=== PATIENT | female | born 1995 | race American Indian/Alaskan Native ===

== ENCOUNTER 2018-03-23 23:31 | Inpatient (IN) | payer OTHER ==
[2018-03-23] MEDS ORDERED: Sodium Chloride 0.9% 1,000 ML IV STA (23:50)
[2018-03-24 00:14] LABS: BASO # 0.01 K/mm3 (0.0-2.0); BASO % 0.1 % (0.0-3.0); GRAN # 11.35 (1.4-6.5); GRAN % 82.7 % (50.0-68.0); HEMOGLOBIN 14.4 g/dL (12.0-16.0); LYMPH # 1.7 (1.2-3.4); LYMPH % 12.2 % (22.0-35.0); MEAN CELL VOLUME 76.8 fl (80.0-105.0); MEAN CORPUSCULAR HEMOGLOBIN 28.7 pg (25.0-35.0); MEAN CORPUSCULAR HGB CONC 37.4 g/dl (31.0-37.0); MEAN PLATELET VOLUME 9.7 fl (7.0-11.0); MONO # 0.7 (0.1-0.6); RBC 5.01 10^6/uL (3.5-6.1); WHITE BLOOD COUNT 13.7 10^3/ul (4.5-11.0)
[2018-03-24 00:16] LABS: URINE BILIRUBIN SMALL (NEGATIVE); URINE BLOOD NEGATIVE (NEGATIVE); URINE GLUCOSE (UA) NEGATIVE (NEGATIVE); URINE LEUKOCYTE ESTERASE TRACE Leu/uL (NEGATIVE); URINE PROTEIN 100 mg/dL (<30 mg/dL); URINE UROBILINOGEN 0.2 E.U./dL (<1 E.U./dL)
[2018-03-24 00:34] LABS: URINE APPEARANCE CLEAR (CLEAR); URINE COLOR YELLOW (YELLOW)
--- NOTE | 2018-03-24 00:44 | ED PDOC ---
Arrival/HPI <Dawson Smith - Last Filed: 03/24/18 02:51> - General Historian: Patient - History of Present Illness Time/Duration: Other (2 days) <Shantal Bryan - Last Filed: 03/26/18 14:27> - General Chief Complaint: Abdominal Pain Time Seen by Provider: 03/23/18 23:50 - History of Present Illness Narrative History of Present Illness (Text): 03/24/18 00:09 22-year-old female presents today with ruq, rlq, epigastric pain x 2 days. pt states she has been having similar symptoms on and off since September. pt c/o nausea, vomiting with severe pain. pt states she usually gets pepcid without improvement. pt denies CP or SOB. pt states pain is sharp and intermittent. pt denies radiation of pain to the back. pt denies fever/chills. denies sick contacts. no diarrhea. no medications have been taken for pain. pt denies headaches, dizziness or weakness. no other complaints. (Shantal Bryan) Past Medical History - Provider Review Nursing Documentation Reviewed: Yes - Travel History Have you recently traveled outside [place] w/in the past 3 mons?: No - Tetanus Immunization Tetanus Immunization: Unknown - Cardiac Hx Cardiac Disorders: No - Pulmonary Hx Respiratory Disorders: No - Neurological Hx Neurological Disorder: No - HEENT Hx HEENT Disorder: No - Renal Hx Renal Disorder: No - Endocrine/Metabolic Hx Endocrine Disorders: No - Hematological/Oncological Hx Blood Disorders: No - Integumentary Hx Dermatological Disorder: No - Musculoskeletal/Rheumatological Hx Musculoskeletal Disorders: No - Gastrointestinal Hx Gastrointestinal Disorders: Yes Hx Gastritis: Yes - Genitourinary/Gynecological Hx Genitourinary Disorders: No - Psychiatric Hx Psychophysiologic Disorder: No Hx Substance Use: Yes - Anesthesia Hx Anesthesia: No <Shantal Bryan - Last Filed: 03/26/18 14:27> Family/Social History - Physician Review Nursing Documentation Reviewed: Yes Family/Social History: Unknown Family HX Smoking Status: Never Smoked Hx Alcohol Use: Yes Frequency of alcohol use: Socially Hx Substance Use: Yes Substance used: Marijuana <Shantal Bryan - Last Filed: 03/26/18 14:27> Allergies/Home Meds <Dawson Smith - Last Filed: 03/24/18 02:51> <Shantal Bryan - Last Filed: 03/26/18 14:27> Allergies/Adverse Reactions: Allergies No Known Allergies Allergy (Verified 03/23/18 23:40) Home Medications: Home Meds Medication Instructions Recorded Confirmed No Known Home Med 03/23/18 03/23/18 Review of Systems - Review of Systems Constitutional: absent: Fatigue, Fevers ENT: absent: Sinus Congestion Respiratory: absent: SOB, Cough Cardiovascular: absent: Chest Pain, Palpitations Gastrointestinal: Abdominal Pain. absent: Constipation, Diarrhea, Nausea, Vomiting Genitourinary Female: absent: Dysuria, Frequency, Hematuria Musculoskeletal: absent: Arthralgias, Back Pain, Neck Pain Skin: absent: Rash, Pruritis Neurological: absent: Headache, Dizziness Psychiatric: absent: Anxiety, Depression <Shantal Bryan - Last Filed: 03/26/18 14:27> Physical Exam Vital Signs Reviewed: Yes Temperature: Afebrile Blood Pressure: Normal Pulse: Regular Respiratory Rate: Normal Appearance: Positive for: Well-Appearing, Non-Toxic, Comfortable Pain Distress: None Mental Status: Positive for: Alert and Oriented X 3 - Systems Exam Head: Present: Atraumatic Mouth: Present: Moist Mucous Membranes Neck: Present: Normal Range of Motion Respiratory/Chest: Present: Clear to Auscultation, Good Air Exchange. No: Respiratory Distress, Accessory Muscle Use Cardiovascular: Present: Regular Rate and Rhythm, Normal S1, S2. No: Murmurs Abdomen: Present: Tenderness (ruq, epigastric, rlq tenderness), Guarding. No: Distention, Peritoneal Signs, Rebound Back: Present: Normal Inspection. No: CVA Tenderness, Midline Tenderness, Paraspinal Tenderness Upper Extremity: Present: Normal ROM Lower Extremity: Present: Normal ROM Neurological: Present: GCS=15, Speech Normal Skin: Present: Warm, Dry, Normal Color. No: Rashes Psychiatric: Present: Alert, Oriented x 3 <Shantal Bryan - Last Filed: 03/26/18 14:27> Vital Signs Temp Pulse Resp BP Pulse Ox 03/24/18 02:17 98.8 F 62 18 134/85 100 03/24/18 00:33 98.7 F 60 16 112/65 100 03/23/18 23:41 98.2 F 64 19 129/92 H 99 Medical Decision Making <Dawson Smith - Last Filed: 03/24/18 02:51> <Shantal Bryan - Last Filed: 03/26/18 14:27> ED Course and Treatment: EXAM: CT Abdomen and Pelvis With Intravenous Contrast Dictated and Authenticated by: Rajeev Mckenna MD 03/24/2018 2:37 AM IMPRESSION: 1. Moderate free pelvic fluid. 2. Bilateral ovarian follicles as described.If clinically warranted, a pelvic ultrasound may be helpful for further assessment. 3. Gastric distention likely due to recent ingestion versus delayed emptying. There is thickening of the distal stomach and duodenum which could be due to peristalsis versus underdistention. Correlation with clinical data is recommended if gastritis/duodenitis is clinically suspected. Correlation with internal medicine evaluation and further workup or followup as recommended by patient's clinical data. 03/24/18 02:[address] Woody who is aware and agrees with the plan. Accepts patient into her service to Med-Surg. (Dawson Smith) 03/24/18 01:02 Patient is nontoxic well appearing with stable vital signs presenting with severe abdominal pain ekg; normal sinus rhythm with sinus arrhythmia at 61 bpm normal axis no ST elevations QTC 434 CBC wbc; 13.7 CMP k: 3.5 Lipase wnl Urinalysis + ketones Bedside right upper quadrant ultrasound performed by Dr. Smith: No CAT scan: Patient reassessment: After protonic some Zofran patient is feeling better. Patient sleeping comfortably in emergency room. Discussed all results with patient in depth Impression: Abdominal pain Tylenol every 4 hours as needed for pain Protonix; one tablet daily Increase fluids Follow up with primary care physician within the next 2 days Follow up with the GI specialist within the next 2 days. Return immediately if symptoms worsen persist or if new symptoms develop: High fevers, increasing pain, vomiting, diarrhea or any other concerning symptoms develop 03/24/18 01:39 case signed out to dr. smith pending CT results, re-evaluation and disposition. (Shanatl Bryan) - Lab Interpretations Microbiology Results: Microbiology Results 03/24/18 00:02 Urine Urine Culture - Final 50-100,000 CFU/ML. MULTIPLE SPECIES. SUGGEST REPEAT SPECIMEN. Lab Results: 03/25/18 07:00 03/26/18 06:20 Lab Results 03/26/18 06:20: Potassium 3.5 L 03/25/18 07:00: Urine HCG, Qual Negative 03/25/18 07:00: Sodium 138, Potassium 3.5 L, Chloride 103, Carbon Dioxide 21, Anion Gap 17, BUN 12, Creatinine 0.8, Est GFR ( Amer) > 60, Est GFR (Non- Af Amer) > 60, Random Glucose 85, Calcium 9.4 03/25/18 07:00: WBC 11.1 H, RBC 4.37, Hgb 12.3 D, Hct 33.8 L, MCV 77.3 L, MCH 28.1, MCHC 36.4, RDW 13.9, Plt Count 232, MPV 9.9 03/24/18 00:02: WBC 13.7 H, RBC 5.01, Hgb 14.4, Hct 38.5, MCV 76.8 L, MCH 28.7, MCHC 37.4 H, RDW 14.0, Plt Count 275, MPV 9.7, Gran % 82.7 H, Lymph % (Auto) 12.2 L, [place] % (Auto) 5.0, Eos % (Auto) 0.0 L, Baso % (Auto) 0.1, Gran # 11.35 H , Lymph # (Auto) 1.7, [place] # (Auto) 0.7 H, Eos # (Auto) 0.0, Baso # (Auto) 0.01 03/24/18 00:02: Sodium 142, Potassium 3.5 L, Chloride 101, Carbon Dioxide 22, Anion Gap 23 H, BUN 13, Creatinine 0.9, Est GFR ( Amer) > 60, Est GFR ( Non-Af Amer) > 60, Random Glucose 136 H, Calcium 10.3, Total Bilirubin 1.5 H, AST 26, ALT 22, Alkaline Phosphatase 93, Total Protein 9.4 H, Albumin 5.0 H, Globulin 4.4, Albumin/Globulin Ratio 1.1, Lipase 30 03/24/18 00:02: Urine Color Yellow, Urine Appearance Clear, Urine pH 6.0, Ur Specific [place] >= 1.030, Urine Protein 100 H, Urine Glucose (UA) Negative, Urine Ketones 40 H, Urine Blood Negative, Urine Nitrate Negative, Urine Bilirubin Small H, Urine Urobilinogen 0.2, Ur Leukocyte Esterase Trace H, Urine RBC 1 - 3, Urine WBC 5 - 10, Ur Epithelial Cells 1 - 3, Urine Bacteria Mod, Urine Other Fiber - RAD Interpretation Radiology Orders: 03/24/18 00:07 ABD & PELVIS IV CONTRAST ONLY [CT] Stat CHEST PORTABLE [RAD] Stat 03/24/18 12:14 ABDOMEN COMPLETE [US] Urgent PELVIS ULTRASOUND [US] Routine - Medication Orders Current Medication Orders: Acetaminophen (Tylenol 325mg Tab) 650 mg PO Q6H PRN PRN Reason: Fever >100.4 F Metronidazole (Flagyl) 500 mg in 100 mls @ 100 mls/hr IVPB Q8 JOSE A PRN Reason: Protocol Last Admin: 03/26/18 13:19 Dose: 100 mls/hr eMAR Start Stop Document 03/26/18 13:19 TAV (Rec: 03/26/18 13:19 TAV [id number]) Intravenous Solution Start Date 03/26/18 Start Time 13:19 End Date 03/26/18 End time 14:19 Total Infusion Time 60 Ceftriaxone Sodium (Rocephin 1 Gram Ivpb) 1 gm in 100 mls @ 100 mls/hr IVPB DAILY JOSE A PRN Reason: Protocol Last Admin: 03/26/18 09:46 Dose: 100 mls/hr eMAR Start Stop Document 03/26/18 09:46 TAV (Rec: 03/26/18 09:47 TAV [id number]) Intravenous Solution Start Date 03/26/18 Start Time 09:47 End Date 03/26/18 End time 10:47 Total Infusion Time 60 Ketorolac Tromethamine (Toradol) 30 mg IVP Q6H PRN PRN Reason: Pain, moderate (4-7) Last Admin: 03/26/18 05:00 Dose: 30 mg [facility] Pain Assessment Document 03/26/18 05:00 KP (Rec: 03/26/18 05:30 KP [id number]) Pain Reassessment Is this a pain reassessment? No Sleep Is patient sleeping during reassessment? No Presence of Pain Presence of Pain Yes IVP Administration Document 03/26/18 05:00 KP (Rec: 03/26/18 05:30 KP [id number]) Charges for Administration # of IVP Administrations 1 Re-Assess: MAR Pain Assessment Document 03/26/18 06:00 (Rec: 03/26/18 06:58 [id number] Pain Reassessment Is this a pain reassessment? Yes Sleep Is patient sleeping during reassessment? No Presence of Pain Presence of Pain No Morphine Sulfate (Morphine) 1 mg IVP Q6H PRN PRN Reason: Pain, severe (8-10) Ondansetron HCl (Zofran Inj) 4 mg IVP Q4H PRN PRN Reason: Nausea/Vomiting Last Admin: 03/26/18 05:46 Dose: 4 mg IVP Administration Document 03/26/18 05:46 (Rec: 03/26/18 05:46 [id number] Charges for Administration # of IVP Administrations 1 Pantoprazole Sodium (Protonix Ec Tab) 40 mg PO Q12H [facility] Last Admin: 03/26/18 09:46 Dose: Potassium Chloride (K-Dur 20 Meq Er Tab) 40 meq PO BRK [facility] Last Admin: 03/26/18 11:58 Dose: 40 meq Discontinued Medications Famotidine (Pepcid) 20 mg IVP DAILY [facility] Last Admin: 03/24/18 09:29 Dose: 20 mg IVP Administration Document 03/24/18 09:29 [facility] (Rec: 03/24/18 09:29 [id number]) Charges for Administration # of IVP Administrations 1 Sodium Chloride (Sodium Chloride 0.9%) 1,000 mls @ 999 mls/hr IV .Q1H1M STA Stop: 03/24/18 00:50 Last Admin: 03/24/18 00:12 Dose: 999 mls/hr eMAR Start Stop Document 03/24/18 00:12 (Rec: 03/24/18 00:12 [id number]) Intravenous Solution Start Date 03/24/18 Start Time 00:12 Ceftriaxone Sodium (Rocephin 1 Gram Ivpb) 1 gm in 100 mls @ 100 mls/hr IVPB STAT STA PRN Reason: Protocol Stop: 03/24/18 03:43 Last Admin: 03/24/18 03:00 Dose: 100 mls/hr eMAR Start Stop Document 03/24/18 03:00 (Rec: 03/24/18 03:00 [id number]) Intravenous Solution Start Date 03/24/18 Start Time 03:00 Sodium Chloride (Sodium Chloride 0.9%) 1,000 mls @ 100 mls/hr IV .Q10H JOSE A Stop: 03/26/18 10:00 Last Admin: 03/26/18 12:00 Dose: 100 mls/hr eMAR Start Stop Document 03/26/18 12:00 TAV (Rec: 03/26/18 12:00 TAV [id number]) Intravenous Solution Start Date 03/26/18 Start Time 12:00 Potassium Chloride (Potassium Chloride 10 Meq/100 Ml) 10 meq in 100 mls @ 50 mls/hr IVPB Q2H JOSE A Stop: 03/25/18 05:29 Last Admin: 03/25/18 04:11 Dose: 50 mls/hr eMAR Start Stop Document 03/25/18 04:11 MP (Rec: 03/25/18 04:11 MP [id number]) Intravenous Solution Start Date 03/25/18 Start Time 04:11 Ketorolac Tromethamine (Toradol) 30 mg IVP STAT STA Stop: 03/24/18 02:40 Last Admin: 03/24/18 02:52 Dose: 30 mg MAR Pain Assessment Document 03/24/18 02:52 (Rec: 03/24/18 02:52 [id number]) Pain Reassessment Is this a pain reassessment? No Sleep Is patient sleeping during reassessment? No Presence of Pain Presence of Pain Yes Pain Scale Used Pain Scale Used Numeric Location Pain Location Body Site Abdomen IVP Administration Document 03/24/18 02:52 (Rec: 03/24/18 02:52 [id number]) Charges for Administration # of IVP Administrations 1 Re-Assess: MAR Pain Assessment Document 03/24/18 04:20 KP (Rec: 03/24/18 05:09 KP [id number]) Pain Reassessment Is this a pain reassessment? Yes Sleep Is patient sleeping during reassessment? No Presence of Pain Presence of Pain No Ketorolac Tromethamine (Toradol) 30 mg IVP STAT STA Stop: 03/24/18 04:50 Last Admin: 03/24/18 05:06 Dose: 30 mg MAR Pain Assessment Document 03/24/18 05:06 KP (Rec: 03/24/18 05:06 KP [id number]) Pain Reassessment Is this a pain reassessment? No Sleep Is patient sleeping during reassessment? No Presence of Pain Presence of Pain Yes Pain Scale Used Pain Scale Used Numeric Location Pain Location Body Site Abdomen Back Description Description Intermittent Intensity of Pain at present 6 Pain Behavior Moaning IVP Administration Document 03/24/18 05:06 (Rec: 03/24/18 05:06 [id number]) Charges for Administration # of IVP Administrations 1 Re-Assess: [facility] Pain Assessment Document 03/24/18 06:06 (Rec: 03/24/18 06:06 [id number]) Pain Reassessment Is this a pain reassessment? Yes Sleep Is patient sleeping during reassessment? No Presence of Pain Presence of Pain No Ketorolac Tromethamine (Toradol) 30 mg IVP STAT STA Stop: 03/24/18 23:14 Last Admin: 03/24/18 23:27 Dose: 30 mg [facility] Pain Assessment Document 03/24/18 23:27 MP (Rec: 03/24/18 23:27 [id number]) Pain Reassessment Is this a pain reassessment? No IVP Administration Document 03/24/18 23:27 MP (Rec: 03/24/18 23:27 [id number]) Charges for Administration # of IVP Administrations 1 Re-Assess: [facility] Pain Assessment Document 03/25/18 00:27 MP (Rec: 03/25/18 01:01 [id number] Pain Reassessment Is this a pain reassessment? Yes Sleep Is patient sleeping during reassessment? Yes Morphine Sulfate (Morphine) 2 mg IVP Q6H PRN PRN Reason: Pain, severe (8-10) Last Admin: 03/24/18 20:20 Dose: 2 mg [facility] Pain Assessment Document 03/24/18 20:20 MP (Rec: 03/24/18 20:20 [id number]) Pain Reassessment Is this a pain reassessment? No Presence of Pain Presence of Pain Yes Pain Scale Used Pain Scale Used Numeric Location Pain Location Body Site Abdomen Description Description Intermittent Intensity of Pain at present 8 Acceptable Level of Pain 0 Pain Behavior Crying IVP Administration Document 03/24/18 20:20 MP (Rec: 03/24/18 20:20 MP [facility] [id number]) Charges for Administration # of IVP Administrations 1 Re-Assess: [facility] Pain Assessment Document 03/24/18 21:15 MP (Rec: 03/24/18 21:16 MP [id number]) Pain Reassessment Is this a pain reassessment? Yes Sleep Is patient sleeping during reassessment? No Pain Scale Used Pain Scale Used Numeric Location Left, Right or Bilateral Right Pain Location Body Site Abdomen Description Description Intermittent Intensity of Pain at present 2 Ondansetron HCl (Zofran Inj) 4 mg IVP STAT STA Stop: 03/23/18 23:56 Last Admin: 03/24/18 00:11 Dose: 4 mg IVP Administration Document 03/24/18 00:11 (Rec: 03/24/18 00:11 [id number]) Charges for Administration # of IVP Administrations 1 Ondansetron HCl (Zofran Inj) 4 mg IVP STAT STA Stop: 03/24/18 02:01 Last Admin: 03/24/18 02:11 Dose: 4 mg IVP Administration Document 03/24/18 02:11 SH (Rec: 03/24/18 02:11 [id number]) Charges for Administration # of IVP Administrations 2 Pantoprazole Sodium (Protonix Inj) 40 mg IVP STAT STA Stop: 03/23/18 23:56 Last Admin: 03/24/18 00:11 Dose: 40 mg IVP Administration Document 03/24/18 00:11 SH (Rec: 03/24/18 00:11 [id number]) Charges for Administration # of IVP Administrations 1 Potassium Chloride (K-Dur 20 Meq Er Tab) 20 meq PO ONCE ONE Stop: 03/25/18 20:34 Last Admin: 03/26/18 00:16 Dose: Not Given Non-Admin Reason: Nausea - Scribe Statement The provider has reviewed the documentation as recorded by the Scribe <Dawson Smith - Last Filed: 03/24/18 02:51> <Shantal Bryan - Last Filed: 03/26/18 14:27> - Scribe Statement Inga Poole Provider Scribe Attestation: All medical record entries made by the Scribe were at my direction and personally dictated by me. I have reviewed the chart and agree that the record accurately reflects my personal performance of the history, physical exam, medical decision making, and the department course for this patient. I have also personally directed, reviewed, and agree with the discharge instructions and disposition. (Dawson Smith) Disposition/Present on Arrival <Dawson Smith - Last Filed: 03/24/18 02:51> - Present on Arrival Any Indicators Present on Arrival: No History of DVT/PE: No History of Uncontrolled Diabetes: No Urinary Catheter: No History of Decub. Ulcer: No History Surgical Site Infection Following: None - Disposition Have Diagnosis and Disposition been Completed?: Yes Disposition Time: 02:00 <Shantal Bryan - Last Filed: 03/26/18 14:27> - Disposition Diagnosis: Abdominal pain Disposition: HOSPITALIZED Patient Problems: Current Active Problems Problem Status Onset Abdominal pain Acute Condition: FAIR
[2018-03-24 00:45] LABS: ALB/GLOB RATIO 1.1 (1.1-1.8); ALT/SGPT 22 U/L (7-56); AST/SGOT 26 U/L (14-36); BLOOD UREA NITROGEN 13 mg/dL (7-21); CALCIUM 10.3 mg/dL (8.4-10.5); GFR AFRICAN-AMERICAN > 60; GFR NON-AFRICAN AMERICAN > 60; LIPASE 30 U/L (23-300)
[2018-03-24] MEDS ORDERED: Iohexol 300 100 ML IJ ONE (01:13)
[2018-03-24] MEDS ORDERED: Iohexol 350 MG/100 ML VIAL ONE (01:13)
[2018-03-24 01:23] LABS: URINE BACTERIA MOD (NEG)
--- NOTE | 2018-03-24 02:38 | CT ---
EXAM: CT Abdomen and Pelvis With Intravenous Contrast CLINICAL HISTORY: 22 years old, female; Pain; Abdominal pain; Additional info: Diffuse abdominal pain TECHNIQUE: Axial computed tomography images of the abdomen and pelvis with intravenous contrast. All CT scans at this facility use one or more dose reduction techniques, viz.: automated exposure control; ma/kV adjustment per patient size (including targeted exams where dose is matched to indication; i.e. head); or iterative reconstruction technique. 556 images are submitted. Axial images are submitted in lung and soft tissue windows. Coronal and sagittal reformatted images were created and reviewed. Axial reformatted images were created and reviewed. CONTRAST: 100 mL of [id number] administered intravenously. COMPARISON: No relevant prior studies available. FINDINGS: Lung bases: Unremarkable. No mass. No consolidation. ABDOMEN: Liver: Fatty liver. Gallbladder and bile ducts: Partially distended gallbladder which is folded on itself. Pancreas: Unremarkable. No mass. No ductal dilation. Spleen: Left upper quadrant splenule. Adrenals: Unremarkable. No mass. Kidneys and ureters: Unremarkable. No solid mass. No hydronephrosis. Stomach and bowel: Gastric distention likely due to recent ingestion versus delayed emptying. There is thickening of the distal stomach and duodenum which could be due to peristalsis versus underdistention. Correlation with clinical data is recommended if gastritis/duodenitis is clinically suspected. PELVIS: Appendix: Normal appendix. Bladder: Partially decompressed bladder with bladder wall thickening. Correlation with urinalysis is recommended only if clinical cystitis is suspected. Reproductive: Retroflexed uterus. Prominent pelvic vessels. Correlation with clinical data is recommended pelvic congestion syndrome is clinically suspected. Right ovarian dominant follicle measures 2.4 cm and the left ovarian dominant follicle measures 1.7 cm. ABDOMEN and PELVIS: Intraperitoneal space: Moderate free pelvic fluid. No free air. Bones/joints: No acute fracture. No dislocation. Soft tissues: Unremarkable. Vasculature: The aorta is normal in caliber and there are no danielle-aortic collections. Retroaortic left renal vein. Lymph nodes: Unremarkable. No enlarged lymph nodes. IMPRESSION: 1. Moderate free pelvic fluid. 2. Bilateral ovarian follicles as described.If clinically warranted, a pelvic ultrasound may be helpful for further assessment. 3. Gastric distention likely due to recent ingestion versus delayed emptying. There is thickening of the distal stomach and duodenum which could be due to peristalsis versus underdistention. Correlation with clinical data is recommended if gastritis/duodenitis is clinically suspected. Correlation with internal medicine evaluation and further workup or followup as recommended by patient's clinical data.
[2018-03-24] MEDS ORDERED: cefTRIAXone 1 gm 1 GM/100 ML BAG IVPB STA (02:44)
[2018-03-24] MEDS: Sodium Chloride 0.9% 1,000 ML IV SCH (03:00)
--- NOTE | 2018-03-24 08:47 | RAD ---
HISTORY: abd pain COMPARISON: No prior. FINDINGS: LUNGS: No active pulmonary disease. PLEURA: No significant pleural effusion identified, no pneumothorax apparent. CARDIOVASCULAR: Normal. OSSEOUS STRUCTURES: No significant abnormalities. VISUALIZED UPPER ABDOMEN: Normal. OTHER FINDINGS: None. IMPRESSION: No active disease.
[2018-03-24] MEDS: cefTRIAXone 1 gm 1 GM/100 ML BAG IVPB SCH (09:29)
[2018-03-24] MEDS: metroNIDAZOLE IV 500 mg/100 ml 500 MG/100 ML BAG IVPB SCH ×2 (13:18→21:40)
[2018-03-24] MEDS: Morphine 4 mg/ml ISec IVP PRN ×2 (13:33→20:20)
--- NOTE | 2018-03-24 16:56 | US ---
HISTORY: Abdominal pain COMPARISON: Comparison made with CT scan abdomen pelvis dated 03/24/2018 TECHNIQUE: Sonographic evaluation of the abdomen. FINDINGS: LIVER: Liver measures approximately 13 cm in CC dimension. No obvious hepatic mass collection or calcification. Liver demonstrates smooth contour and slight increased echotexture suggesting fatty infiltration. Other infiltrative hepatic cellular disease process not excluded. Clinical correlation recommended. No evidence of significant intrahepatic biliary ductal dilatation. GALLBLADDER: Unremarkable. No gallstones. COMMON BILE DUCT: Measures 2.4 mm. No stones. No dilatation. PANCREAS: Unremarkable as visualized. No mass. No ductal dilatation. RIGHT KIDNEY: Measures 9.5 x 4.0 x 5.1cm. Normal echogenicity. No calculus, mass, or hydronephrosis. LEFT KIDNEY: Measures 9.5 x 4.3 x 5.2cm. Normal echogenicity. No calculus, mass, or hydronephrosis. SPLEEN: Normal in size and contour. No mass. AORTA: No aneurysmal dilatation. IVC: Unremarkable. OTHER FINDINGS: None. IMPRESSION: Findings suggest mild fatty infiltration. Other infiltrative opacity disease process not excluded. .
--- NOTE | 2018-03-24 16:58 | US ---
HISTORY: Fibroids COMPARISON: None available. TECHNIQUE: FINDINGS: UTERUS: Measures 7.1 x 2.9 x 4.6 cm. Normal in size and appearance. No fibroid or other mass lesion seen. ENDOMETRIUM: Measures 5.0 mm in diameter. Unremarkable. Cervix measures approximately 3.5 cm CERVIX: No cervical abnormality identified. RIGHT OVARY: Measures 3.6 x 1.4 x 3.4 cm. No solid mass. Normal flow. LEFT OVARY: Measures 2.7 x 1.8 x 2.3 cm. No solid mass. Normal flow. FREE FLUID: Small amount of free fluid present within the cul de sac. OTHER FINDINGS: None. IMPRESSION: Small amount of free fluid present within the cul de sac.
--- NOTE | 2018-03-24 17:02 | CARD ---
APPROVED REPORT EKG Measurement Heart [id number] <Conclusion> Normal sinus rhythm with sinus arrhythmia Normal ECG
--- NOTE | 2018-03-25 01:36 | CP.PCM.PN ---
Subjective - Date & Time of Evaluation Date of Evaluation: 03/25/18 Time of Evaluation: 01:36 - Subjective Subjective: Patient was seen at bedside. She had received morphine for pain, still has pain. As per mother and patient , morphine is too strong for her, can not tolerate. Pain is in epigastric and RUQ area, mild pain with no radiation. No chest pain, sob. Medical record was reviewed. 22 year old woman was admitted with intractable abdominal pain, nausea and vomiting, gastroenteritis. Has no significant medical history. Objective - Vital Signs/Intake and Output Vital Signs (last 24 hours): Temp Pulse Resp BP Pulse Ox 98.5 F 56 L 18 130/95 H 100 03/24/18 23:06 03/24/18 23:06 03/24/18 23:06 03/24/18 23:06 03/24/18 23:06 Intake and Output: 03/24/18 03/25/18 18:59 06:59 Intake Total 0 Balance 0 - Medications Medications: Current Medications Acetaminophen (Tylenol 325mg Tab) 650 mg PO Q6H PRN PRN Reason: Fever >100.4 F Famotidine (Pepcid) 20 mg IVP DAILY [facility] Last Admin: 03/24/18 09:29 Dose: 20 mg Sodium Chloride (Sodium Chloride 0.9%) 1,000 mls @ 100 mls/hr IV .Q10H [facility] Stop: 03/26/18 10:00 Last Admin: 03/24/18 03:00 Dose: 100 mls/hr Metronidazole (Flagyl) 500 mg in 100 mls @ 100 mls/hr IVPB Q8 JOSE A PRN Reason: Protocol Last Admin: 03/24/18 21:40 Dose: 100 mls/hr Ceftriaxone Sodium (Rocephin 1 Gram Ivpb) 1 gm in 100 mls @ 100 mls/hr IVPB DAILY [facility] PRN Reason: Protocol Last Admin: 03/24/18 09:29 Dose: 100 mls/hr Potassium Chloride (Potassium Chloride 10 Meq/100 Ml) 10 meq in 100 mls @ 50 mls/hr IVPB Q2H [facility] Stop: 03/25/18 05:29 Morphine Sulfate (Morphine) 2 mg IVP Q6H PRN PRN Reason: Pain, severe (8-10) Last Admin: 03/24/18 20:20 Dose: 2 mg Ondansetron HCl (Zofran Inj) 4 mg IVP Q4H PRN PRN Reason: Nausea/Vomiting Last Admin: 03/24/18 20:19 Dose: 4 mg - Labs Labs: Laboratory Last Values WBC 13.7 10^3/ul (4.5-11.0) H 03/24/18 00:02 RBC 5.01 10^6/uL (3.5-6.1) 03/24/18 00:02 Hgb 14.4 g/dL (12.0-16.0) 03/24/18 00:02 Hct 38.5 % (36.0-48.0) 03/24/18 00:02 MCV 76.8 fl (80.0-105.0) L 03/24/18 00:02 MCH 28.7 pg (25.0-35.0) 03/24/18 00:02 MCHC 37.4 g/dl (31.0-37.0) H 03/24/18 00:02 RDW 14.0 % (11.5-14.5) 03/24/18 00:02 Plt Count 275 10^3/uL (120.0-450.0) 03/24/18 00:02 MPV 9.7 fl (7.0-11.0) 03/24/18 00:02 Gran % 82.7 % (50.0-68.0) H 03/24/18 00:02 Lymph % (Auto) 12.2 % (22.0-35.0) L 03/24/18 00:02 [place] % (Auto) 5.0 % (1.0-6.0) 03/24/18 00:02 Eos % (Auto) 0.0 % (1.5-5.0) L 03/24/18 00:02 Baso % (Auto) 0.1 % (0.0-3.0) 03/24/18 00:02 Gran # 11.35 (1.4-6.5) H 03/24/18 00:02 Lymph # (Auto) 1.7 (1.2-3.4) 03/24/18 00:02 [place] # (Auto) 0.7 (0.1-0.6) H 03/24/18 00:02 Eos # (Auto) 0.0 (0.0-0.7) 03/24/18 00:02 Baso # (Auto) 0.01 K/mm3 (0.0-2.0) 03/24/18 00:02 Sodium 142 mmol/L (132-148) 03/24/18 00:02 Potassium 3.5 mmol/L (3.6-5.0) L 03/24/18 00:02 Chloride 101 mmol/L (98-107) 03/24/18 00:02 Carbon Dioxide 22 mmol/L (21-33) 03/24/18 00:02 Anion Gap 23 (10-20) H 03/24/18 00:02 BUN 13 mg/dL (7-21) 03/24/18 00:02 Creatinine 0.9 mg/dl (0.7-1.2) 03/24/18 00:02 Est GFR ( Amer) > 60 03/24/18 00:02 Est GFR (Non-Af Amer) > 60 03/24/18 00:02 Random Glucose 136 mg/dL (70-110) H 03/24/18 00:02 Calcium 10.3 mg/dL (8.4-10.5) 03/24/18 00:02 Total Bilirubin 1.5 mg/dL (0.2-1.3) H 03/24/18 00:02 AST 26 U/L (14-36) 03/24/18 00:02 ALT 22 U/L (7-56) 03/24/18 00:02 Alkaline Phosphatase 93 U/L (38-126) 03/24/18 00:02 Total Protein 9.4 g/dL (5.8-8.3) H 03/24/18 00:02 Albumin 5.0 g/dL (3.0-4.8) H 03/24/18 00:02 Globulin 4.4 gm/dL 03/24/18 00:02 Albumin/Globulin Ratio 1.1 (1.1-1.8) 03/24/18 00:02 Lipase 30 U/L (23-300) 03/24/18 00:02 Urine Color Yellow (YELLOW) 03/24/18 00:02 Urine Appearance Clear (CLEAR) 03/24/18 00:02 Urine pH 6.0 (4.7-8.0) 03/24/18 00:02 Ur Specific [place] >= 1.030 (1.005-1.035) 03/24/18 00:02 Urine Protein 100 mg/dL (<30 mg/dL) H 03/24/18 00:02 Urine Glucose (UA) Negative mg/dL (NEGATIVE) 03/24/18 00:02 Urine Ketones 40 mg/dL (NEGATIVE) H 03/24/18 00:02 Urine Blood Negative (NEGATIVE) 03/24/18 00:02 Urine Nitrate Negative (NEGATIVE) 03/24/18 00:02 Urine Bilirubin Small (NEGATIVE) H 03/24/18 00:02 Urine Urobilinogen 0.2 E.U./dL (<1 E.U./dL) 03/24/18 00:02 Ur Leukocyte Esterase Trace Roberta/uL (NEGATIVE) H 03/24/18 00:02 Urine RBC 1 - 3 /hpf (0-2) 03/24/18 00:02 Urine WBC 5 - 10 /hpf (0-6) 03/24/18 00:02 Ur Epithelial Cells 1 - 3 /hpf (0-5) 03/24/18 00:02 Urine Bacteria Mod (NEG) 03/24/18 00:02 Urine Other Fiber 03/24/18 00:02 - Constitutional Appears: Well, No Acute Distress - Head Exam Head Exam: ATRAUMATIC, NORMAL INSPECTION, NORMOCEPHALIC - Eye Exam Eye Exam: Normal appearance - ENT Exam ENT Exam: Normal External Ear Exam - Neck Exam Neck Exam: Normal Inspection - Respiratory Exam Respiratory Exam: NORMAL BREATHING PATTERN - Cardiovascular Exam Cardiovascular Exam: absent: JVD - GI/Abdominal Exam GI & Abdominal Exam: absent: Distended - Rectal Exam Rectal Exam: Deferred - Exam Additional comments: Deferred. - Extremities Exam Extremities Exam: Normal Inspection - Back Exam Back Exam: NORMAL INSPECTION - Neurological Exam Neurological Exam: Alert, Awake, Oriented x3 - Psychiatric Exam Psychiatric exam: Normal Affect, Normal Mood - Skin Skin Exam: Normal Color Assessment and Plan - Assessment and Plan (Free Text) Assessment: Abdominal-RUQ+Epigastric pain. Gastritis?GERD. R/O gastroenteritis. Dehydration. Hypokalemia. Plan: Conitnue present management . Replace K. Toradol 30 mg IV X 1. May consider avoiding morphine as analgesic.
--- NOTE | 2018-03-25 02:03 | HP ---
DATE OF EXAM: 03/24/2018 HISTORY OF PRESENT ILLNESS: This 22-year-old female was examined at her bedside and this case was reviewed in detail with nurse, Claribel Bateman, registered nurse, and Dr. Bandar Dillard from GI. The patient presented to [facility] Emergency Room earlier this morning complaining of intractable abdominal pain, nausea, and vomiting. She received multiple doses of IV Pepcid and IV Zofran, and was admitted for further evaluation of the above. On further discussion with this patient, she states that this has been an ongoing problem since 09/2017. To date, she has not had time to make an appointment with a stained glass joiner for further evaluation and is admitted for treatment and evaluation of the above. REVIEW OF SYSTEMS: CONSTITUTIONAL: Denied fever or chills. HEAD: Denied headache or seizure. EYES: No change in visual acuity. EARS: No hearing loss. THROAT: No swallowing difficulty. NECK: No stiffness. CARDIAC: No knowledge of hypertension. PULMONARY: No cough. No hemoptysis. GASTROINTESTINAL: As per HPI. GENITOURINARY: No dysuria. SKIN: Without rash. NEUROLOGICAL: Intact. PSYCHOLOGICAL: Alert. VASCULAR: No claudication. FAMILY HISTORY: Noncontributory. MEDICATIONS: She is on no current prescription medication. ALLERGIES: SHE HAS NO ALLERGIES TO MEDICATION. SOCIAL HISTORY: She has never smoked, uses alcohol socially, and occasionally smokes marijuana. PHYSICAL EXAMINATION: VITAL SIGNS: Temperature 98.2, respirations 20, pulse 66, blood pressure 133/90, pulse ox 100% room air. HEENT: Head: Normocephalic, atraumatic. Eyes: No icterus. Ears: Clear. Throat: Noninjected. NECK: Supple. HEART: Regular S1, S2. LUNGS: Clear. ABDOMEN: Diffuse tenderness throughout all four quadrants. No rebound. No guarding. No tenderness. No rebound tenderness. EXTREMITIES: No edema. SKIN: Without rash. NEUROLOGICAL: Intact. PSYCHOLOGICAL: Alert. VASCULAR: Legs warm to touch. LABORATORY DATA: White count 13,700, hemoglobin 14.4, hematocrit 38.5, platelets 275,000. Sodium 142, K 3.5, chloride 101, bicarb 22, BUN 13, creatinine 0.9, random blood sugar 136. Bilirubin 1.5, AST 26, ALT 22, alkaline phosphatase 93. Lipase 30 normal. Urinalysis showed moderate bacteria. IMPRESSION: This is a 22-year-old female with gastroenteritis, rule out peptic ulcer disease with gastroesophageal reflux disease. Chest x-ray was reviewed. It showed no infiltrate, no effusion, no pneumothorax, no congestive heart failure. Abdominopelvic CT was reviewed. It showed fatty liver, no obvious gallstones, no pancreatic masses, no free air. EKG was reviewed. It showed normal sinus rhythm. PLAN: At present, is to await consultation with Dr. Bandar Dillard from GI as well as urine cultures that have been sent. She has been started on empiric treatment with Flagyl 500 mg IV every 8 hours, morphine 2 mg IV every 6 hours p.r.n. severe pain, Pepcid 20 mg IV daily, Rocephin 1 g IV every 24 hours, 0.9 saline at 100 mL/hour, Zofran 4 mg IV every 4 hours p.r.n. nausea, vomiting. She remains n.p.o. pending GI evaluation and additional testings and diagnostic workup will be entertained based on her clinical progress. Greater than 75 minutes was spent in the care, management, review of labs, orders and x-rays, and discussion of this patient with herself, nursing, and Dr. Bandar Dillard from . All questions were answered. Taniya Woody MD MTDAlia
[2018-03-25] MEDS: metroNIDAZOLE IV 500 mg/100 ml 500 MG/100 ML BAG IVPB SCH ×3 (05:03→22:07)
[2018-03-25 07:15] LABS: HEMOGLOBIN 12.3 g/dL (12.0-16.0); MEAN CELL VOLUME 77.3 fl (80.0-105.0); MEAN CORPUSCULAR HEMOGLOBIN 28.1 pg (25.0-35.0); MEAN CORPUSCULAR HGB CONC 36.4 g/dl (31.0-37.0); MEAN PLATELET VOLUME 9.9 fl (7.0-11.0); RBC 4.37 10^6/uL (3.5-6.1); RED CELL DISTRIBUTION WIDTH 13.9 % (11.5-14.5); WHITE BLOOD COUNT 11.1 10^3/ul (4.5-11.0)
[2018-03-25 07:38] LABS: BLOOD UREA NITROGEN 12 mg/dL (7-21); CALCIUM 9.4 mg/dL (8.4-10.5); GFR AFRICAN-AMERICAN > 60; GFR NON-AFRICAN AMERICAN > 60
--- NOTE | 2018-03-25 08:25 | CON ---
DATE: 03/24/2018 HISTORY OF PRESENT ILLNESS: This patient was seen and evaluated earlier. The patient's mother was at bedside. This 22-year-old patient was admitted with worsening of the abdominal pain, nausea and vomiting, mainly the epigastric and right upper quadrant pain for more 3 days. The patient had episodes of abdominal pain in September, was seen in [facility] where her mother used to work as a nurse and she was told to have gastritis. The patient has not had any endoscopy or workup done for that. As per the mother, the patient did have an ultrasound done and she was told to have questionable gallstones at that time. The patient was visiting her sister who is in [place] where she has got worsening of the symptoms, so presented to the emergency room now. The patient is still complaining of pain in the epigastric area. Gives history of drinking alcohol socially. She does take some NSAID during the menstrual cramps. Other past medical history, significant as above. PAST SURGICAL HISTORY: Denies any surgical history. SOCIAL HISTORY: Alcohol socially. Denies smoking. Uses marijuana socially. REVIEW OF SYSTEMS: Positive as above. Other systems reviewed. Her last menstrual period was about more than 2 weeks ago. PHYSICAL EXAMINATION: GENERAL: The patient is lying on the bed, not in acute distress. VITAL SIGNS: Temperature is 98.2, blood pressure 133/90, pulse 66, respirations 20, O2 saturation 100%. HEENT: Atraumatic, anicteric. NECK: Supple. HEART: S1, S2 heard. LUNGS: Bilateral air entry present. ABDOMEN: Soft. There is tenderness present in the epigastric area and right upper quadrant. There is no rebound or guarding. EXTREMITIES: No edema. No cyanosis. NEUROLOGIC: Alert, oriented. Moves all the extremities. LABORATORY DATA: Hemoglobin 14.4, hematocrit 38.5, WBC 13.7, and platelet 275. Chemistry was essentially unremarkable except random sugar was 136. potassium 3.5, total bilirubin 1.5, albumin was 5. Urinalysis showed 5 to 10 wbc's, leukocyte esterase trace present. CT scan of the abdomen and pelvis done was reviewed and showed moderate amount of free pelvic fluid. Bilateral ovarian follicles noticed. There is also some gastric distention noticed and thickening of the distal stomach and antrum noticed. IMPRESSION: Abdominal pain, epigastric and right upper quadrant area; history of "gastritis"; history of nonsteroidal antiinflammatory drugs. Differential diagnosis should include peptic ulcer disease, erosive esophagitis, and cholelithiasis also should be considered as a differential diagnosis. The patient has questionable history of gallstones, history of taking NSAIDS PLAN The patient is on Pepcid 20 mg. We will change it to Protonix 40 mg every 12 hour. The patient is also on ceftriaxone and Flagyl. 2. Continue with followup of the cultures. 3. The patient requests for an ultrasound scan of the abdomen. 4. Also requests pelvic sonogram. 5. We will start the patient on clear liquid diet. Thank you very much for allowing us to participate in the care of the patient. We discussed with the patient's mother who was also at bedside. Bandar Dillard MD MTDAlia
[2018-03-25] MEDS: cefTRIAXone 1 gm 1 GM/100 ML BAG IVPB SCH (10:51)
[2018-03-25] MEDS: Pantoprazole 40 mg EC Tab PO SCH ×2 (10:53→22:07)
[2018-03-25] MEDS ORDERED: Morphine 2 mg/2 mL syringe IVP PRN (13:13)
[2018-03-25] MEDS: Sodium Chloride 0.9% 1,000 ML IV SCH ×2 (13:45→20:16)
[2018-03-25] MEDS: Potassium Chloride 20 mEq ER Tab PO ONE (22:07)
[2018-03-26] MEDS: Potassium Chloride 20 mEq ER Tab PO ONE (00:16)
--- NOTE | 2018-03-26 02:18 | PN ---
DATE: 03/25/2018 HISTORY OF PRESENT ILLNESS: This patient was seen and evaluated earlier today. The patient is tolerating clear liquid diet. Abdominal pain, she feels slightly better. PHYSICAL EXAMINATION: VITAL SIGNS: Temperature is 98.1, blood pressure 139/101, pulse 65, respirations 18, O2 saturation 100%. HEENT: Atraumatic, anicteric. NECK: Supple. HEART: S1, S2 heard. LUNGS: Bilateral air entry present. ABDOMEN: Soft. There was tenderness present in the epigastric area. EXTREMITIES: No edema. No cyanosis. NEUROLOGIC: Alert, oriented. Moves all the extremities. LABORATORY DATA: Hemoglobin is 12.3, hematocrit 33.8, WBC is 11.1, platelet 232. Chemistries, essentially potassium is 3.5. Urinalysis shows wbc's 5 to 10. IMPRESSION: This 22-year-old patient is admitted with epigastric pain. The differential diagnosis should include: 1. Peptic ulcer disease. The patient did have an ultrasound scan done which showed no gallstones. Peptic ulcer disease, erosive esophagitis also to be considered. The patient also had a small amount of NSAIDS. The patient is on high-dose proton pump inhibitor, clinically improving. 2. Small amount of pelvic fluid and ovarian cyst. The patient did have pelvic sonogram done which showed only a small amount of fluid in the cul-de-sac, otherwise, unremarkable. RECOMMENDATIONS: 1. Continue the clear liquid diet. 2. Continue high-dose PPI. 3. The patient to be scheduled for an EGD tomorrow. 4. Follow up of the urine culture. Thank you very much for allowing us to participate in the care of the patient. Bandar Dillard MD BRITTANI
[2018-03-26] MEDS: metroNIDAZOLE IV 500 mg/100 ml 500 MG/100 ML BAG IVPB SCH ×2 (05:46→13:19)
--- NOTE | 2018-03-26 08:31 | PN ---
DATE: 03/25/2018 SUBJECTIVE: This 22-year-old female was examined at her bedside. This case was reviewed in detail with nurse Claribel Navas and Dr. Bandar Dillard from GI. The patient remains nauseous, was advanced to a clear liquid diet but expressed to me that she felt that she would vomit if she tried to drink her clear liquids or Jell-O. She is being readied for possible endoscopy and was admitted with gastroenteritis and intractable vomiting. PHYSICAL EXAMINATION: GENERAL: At present, she is alert, cooperative. VITAL SIGNS: With a temperature of 98.2, respirations 18, pulse 60 and blood pressure 123/80 and pulse ox of 99% room air. HEENT: Head normocephalic, atraumatic. Eyes: No icterus. Ears: Clear. Throat: Noninjected. NECK: Supple. HEART: Regular S1 and S2. LUNGS: Clear. ABDOMEN: Soft. EXTREMITIES: No edema. SKIN: Without rash. NEUROLOGICAL: Intact. PSYCHOLOGICAL: Alert. VASCULAR: Legs warm to touch. LABORATORY DATA: White count 11,100, hemoglobin 12.3, hematocrit 33.8, platelets 232,000. Sodium 138, K 3.5, chloride 103, bicarb 21, BUN 12, creatinine 0.8, random blood sugar 85. IMPRESSION: This is a 22-year-old female with gastroenteritis, gastritis, fatty liver, admitted with intractable vomiting. PLAN: The plan is to continue Zofran 4 mg IV every 4 hours p.r.n. nausea and vomiting, 0.9 saline at 100 mL/hour, Rocephin 1 g IV every 24, Protonix 40 mg IV every 12, Flagyl 500 mg IV every 8, morphine 1 mg IV every 6 hours p.r.n. severe pain and Toradol 30 mg IV every 6 hours p.r.n. [id number] pain. The patient is n.p.o. after midnight. She will be scheduled for endoscopy in the a.m. Based on her clinical results, additional workup and testing will be entertained. The patient will receive potassium replacement, repeat potassium level in the a.m., and all of the above was discussed in detail with the patient at bedside. All questions were answered. Taniya Woody MD MTDAlia
[2018-03-26] MEDS: cefTRIAXone 1 gm 1 GM/100 ML BAG IVPB SCH (09:46)
[2018-03-26] MEDS: Pantoprazole 40 mg EC Tab PO SCH (09:46)
--- NOTE | 2018-03-26 10:42 | CP.PCM.PN ---
<Abi Aviles - Last Filed: 03/26/18 12:09> Subjective - Date & Time of Evaluation Date of Evaluation: 03/26/18 Time of Evaluation: 07:30 - Subjective Subjective: GI Progress Note for Car Remy PGY2 Patient seen and examined at bedside. As per nursing staff, there were no acute overnight events. Patient reports that she is slowly improving. Her abdominal pain and appetite have improved, but still feels nauseous at times. She denies chest pain, shortness of breath, diarrhea/constipation, fever/chills, dysuria or hematuria. Objective - Vital Signs/Intake and Output Vital Signs (last 24 hours): Temp Pulse Resp BP Pulse Ox 98.3 F 61 20 129/88 100 03/26/18 06:00 03/26/18 06:00 03/26/18 06:00 03/26/18 06:00 03/26/18 06:00 Intake and Output: 03/26/18 03/26/18 06:59 18:59 Intake Total 420 Balance 420 - Medications Medications: Current Medications Acetaminophen (Tylenol 325mg Tab) 650 mg PO Q6H PRN PRN Reason: Fever >100.4 F Metronidazole (Flagyl) 500 mg in 100 mls @ 100 mls/hr IVPB Q8 JOSE A PRN Reason: Protocol Last Admin: 03/26/18 05:46 Dose: 100 mls/hr Ceftriaxone Sodium (Rocephin 1 Gram Ivpb) 1 gm in 100 mls @ 100 mls/hr IVPB DAILY JOSE A PRN Reason: Protocol Last Admin: 03/26/18 09:46 Dose: 100 mls/hr Ketorolac Tromethamine (Toradol) 30 mg IVP Q6H PRN PRN Reason: Pain, moderate (4-7) Last Admin: 03/26/18 05:00 Dose: 30 mg Morphine Sulfate (Morphine) 1 mg IVP Q6H PRN PRN Reason: Pain, severe (8-10) Ondansetron HCl (Zofran Inj) 4 mg IVP Q4H PRN PRN Reason: Nausea/Vomiting Last Admin: 03/26/18 05:46 Dose: 4 mg Pantoprazole Sodium (Protonix Ec Tab) 40 mg PO Q12H JOSE A Last Admin: 06/04/18 09:46 Dose: Not Given - Labs Labs: 03/25/18 07:00 03/26/18 06:20 - Constitutional Appears: No Acute Distress - Head Exam Head Exam: ATRAUMATIC, NORMAL INSPECTION, NORMOCEPHALIC - Eye Exam Eye Exam: Normal appearance, PERRL Pupil Exam: NORMAL ACCOMODATION - ENT Exam ENT Exam: Mucous Membranes Moist - Neck Exam Neck Exam: Full ROM - Respiratory Exam Respiratory Exam: Clear to Ausculation Bilateral, NORMAL BREATHING PATTERN. absent: Rales, Rhonchi, Wheezes - Cardiovascular Exam Cardiovascular Exam: REGULAR RHYTHM, +S1, +S2. absent: Gallop, Rubs, Murmur - GI/Abdominal Exam GI & Abdominal Exam: Soft, Tenderness (epigastric ), Normal Bowel Sounds - Extremities Exam Extremities Exam: Normal Inspection. absent: Calf Tenderness, Pedal Edema - Neurological Exam Neurological Exam: Alert, Awake, CN II-XII Intact, Oriented x3 - Psychiatric Exam Psychiatric exam: Normal Affect, Normal Mood - Skin Skin Exam: Dry, Warm Assessment and Plan - Assessment and Plan (Free Text) Assessment: This is a 22yo female with past medical history of gastritis admitted for 1. Epigastric pain secondary to peptic ulcer disease Plan: Abdominal U/S did not show evidence of gallstones. Patient will have EGD today. Patient will most likely be able to be d/c after EGD. Advance diet as tolerated. Recommend to be placed on PPI at home. Case seen, discussed and reviewed with Dr. Dillard. Car Aviles PGY2 <Bandar Dillard V - Last Filed: 03/26/18 23:30> Objective - Vital Signs/Intake and Output Vital Signs (last 24 hours): Temp Pulse Resp BP Pulse Ox 98.5 F 68 20 135/96 H 99 03/26/18 14:00 03/26/18 14:00 03/26/18 14:00 03/26/18 14:00 03/26/18 14:00 - Medications Medications: Current Medications Acetaminophen (Tylenol 325mg Tab) 650 mg PO Q6H PRN PRN Reason: Fever >100.4 F Metronidazole (Flagyl) 500 mg in 100 mls @ 100 mls/hr IVPB Q8 JOSE A PRN Reason: Protocol Last Admin: 03/26/18 13:19 Dose: 100 mls/hr Ceftriaxone Sodium (Rocephin 1 Gram Ivpb) 1 gm in 100 mls @ 100 mls/hr IVPB DAILY JOSE A PRN Reason: Protocol Last Admin: 03/26/18 09:46 Dose: 100 mls/hr Ketorolac Tromethamine (Toradol) 30 mg IVP Q6H PRN PRN Reason: Pain, moderate (4-7) Last Admin: 03/26/18 05:00 Dose: 30 mg Morphine Sulfate (Morphine) 1 mg IVP Q6H PRN PRN Reason: Pain, severe (8-10) Ondansetron HCl (Zofran Inj) 4 mg IVP Q4H PRN PRN Reason: Nausea/Vomiting Last Admin: 03/26/18 05:46 Dose: 4 mg Pantoprazole Sodium (Protonix Ec Tab) 40 mg PO Q12H [facility] Last Admin: 03/26/18 09:46 Dose: Not Given Potassium Chloride (K-Dur 20 Meq Er Tab) 40 meq PO BRK [facility] Last Admin: 03/26/18 11:58 Dose: 40 meq Attending/Attestation - Attestation I have personally seen and examined this patient.: Yes I have fully participated in the care of the patient.: Yes I have reviewed all pertinent clinical information, including history, physical exam and plan: Yes Notes (Text): 03/26This is an addendum to GI progress report dictated by the Combination Man the.The patient was seen and examined earlier. Medical records, lab studies, imagings were reviewed. Last 24 hours events reviewed. Agreed with the above treatment plan as outlined in Combination Man 's notes the with the addition of the following patient is feeling better on examination he has some mild tenderness in the epigastric area continue PPI Slowly advance the diet EGD scheduled on Monday at 8 AM 23:27
[2018-03-26] MEDS ORDERED: Potassium Chloride 20 mEq ER Tab PO SCH (11:30)
[2018-03-26] MEDS: Sodium Chloride 0.9% 1,000 ML IV SCH (12:00)
--- NOTE | 2018-03-26 13:50 | PN ---
DATE: 03/26/2018 SUBJECTIVE: This 22-year-old female remains hospitalized and she was admitted with intractable vomiting. She remains nauseous and is awaiting endoscopy for evaluation of gastritis and abdominal complaints. PHYSICAL EXAMINATION VITAL SIGNS: Temperature is 98.3, respirations 20, pulse 61, blood pressure 129/88 with a pulse ox of 100% on room air. HEENT: Head: Normocephalic, atraumatic. Eyes: No icterus. Ears: Clear. Throat: Noninjected. NECK: Supple. HEART: Regular S1, S2. LUNGS: Clear. ABDOMEN: Soft. EXTREMITIES: No edema. SKIN: Without rash. NEUROLOGICAL: Intact. PSYCHOLOGICAL: Alert. VASCULAR: Legs warm to touch. LABORATORY DATA: White count of 11,100, hemoglobin 12.3, hematocrit 33.8, platelets 232,000. Potassium this morning is 3.5. Urine test negative. Urinalysis, moderate bacteria. Blood and urine culture showed multiple species contamination. IMPRESSION: A 22-year-old female admitted with gastroenteritis, intractable vomiting, now with hypokalemia secondary to vomiting and fatty liver on abdominal ultrasound. PLAN: The plan is to continue Flagyl 500 mg IV every 8 hours. She will be dosed with 40 mEq of K-Dur p.o. x1 dose now. She is receiving Protonix 40 mg p.o. every 12 hours, morphine 1 mg IV every 6 hours p.r.n. severe pain, Toradol 30 mg IV every 6 hours p.r.n. moderate pain and Zofran 4 mg IV every 4 hours p.r.n. nausea and vomiting. She remains n.p.o. on schedule for endoscopy and additional workup and testing will be entertained based on her clinical progress. Greater than 35 minutes was spent in the care management, review of labs, orders and x-rays with herself, nursing and Dr. Bandar Dillard from GI. Taniya Woody MD MTDD
[2018-03-27] MEDS: metroNIDAZOLE IV 500 mg/100 ml 500 MG/100 ML BAG IVPB SCH ×2 (00:57→06:53)
[2018-03-27] MEDS: Pantoprazole 40 mg EC Tab PO SCH ×3 (10:00→21:38)
[2018-03-27] MEDS ORDERED: Sodium Chloride 0.9% 1,000 ML IV SCH (11:00)
[2018-03-27] MEDS ORDERED: Propofol 10 mg/ml Inj (20 ML) ONE (11:21)
--- NOTE | 2018-03-27 16:37 | PN ---
DATE: 03/27/2018 SUBJECTIVE: This 22-year-old female who is being readied for endoscopy. I have discussed this case with nurse, Shashank Sahu and the patient was less nauseous today. She was admitted with intractable vomiting and has only been on clear liquids to date with no fever, chills, chest pain, or shortness of breath. PHYSICAL EXAMINATION: VITAL SIGNS: Temperature 98.1, respirations 15, pulse 57, and blood pressure 116/72 with a pulse ox of 100%. HEENT: Head: Normocephalic, atraumatic. Eyes: No icterus. Ears: Clear. Throat: Noninjected. NECK: Supple. HEART: Regular, S1 and S2. LUNGS: Clear. ABDOMEN: Soft. EXTREMITIES: No edema. SKIN: Without rash. NEUROLOGIC: Intact. PSYCHOLOGIC: Alert. VASCULAR: Legs warm to touch. LABORATORY DATA: White count 11,100, hemoglobin 12.3, hematocrit 33.8, and platelets 232,000. Random potassium 4. IMPRESSION: A 22-year-old female with gastroenteritis, gastritis, intractable vomiting, and hypokalemia now corrected. PLAN: Stop her Flagyl and IV Rocephin given improvement in clinical symptomatology. She will continue on Protonix 40 mg p.o. every 12 hours, 0.9 saline at 75 mL/hour, and Zofran 4 mg IV every 4 hours p.r.n. nausea and vomiting with diet to be adjusted by paper coater, Dr. Bandar Dillard from GI post endoscopy. As discussed with Nursing, once the patient is medically stable on p.o. diet, she can be readied for discharge when cleared by GI to be followed by her PMD as an outpatient. Taniya Woody MD BRITTANI
[2018-03-28 08:20] VITALS: BP 98/66; PULSE 58; RESP 20; TEMP 97.9; O2SAT 100
--- NOTE | 2018-03-28 08:24 | CP.PCM.PN ---
<Abi Aviles - Last Filed: 03/28/18 13:06> Subjective - Date & Time of Evaluation Date of Evaluation: 03/28/18 Time of Evaluation: 09:00 - Subjective Subjective: GI Progress Note for Car Remy PGY2 Patient seen and examined at bedside. There were no acute overnight events as per nursing staff. Patient reports feeling much better and tolerating a regular diet. She denies nausea/vomiting/diarrhea, fever/chills, chest pain or shortness of breath. Objective - Vital Signs/Intake and Output Vital Signs (last 24 hours): Temp Pulse Resp BP Pulse Ox 97.9 F 58 L 20 98/66 L 100 03/28/18 06:00 03/28/18 06:00 03/28/18 06:00 03/28/18 06:00 03/28/18 06:00 Intake and Output: 03/28/18 03/28/18 06:59 18:59 Intake Total 1200 Balance 1200 - Medications Medications: Current Medications Acetaminophen (Tylenol 325mg Tab) 650 mg PO Q6H PRN PRN Reason: Fever >100.4 F Ketorolac Tromethamine (Toradol) 30 mg IVP Q6H PRN PRN Reason: Pain, moderate (4-7) Last Admin: 03/26/18 05:00 Dose: 30 mg Morphine Sulfate (Morphine) 1 mg IVP Q6H PRN PRN Reason: Pain, severe (8-10) Ondansetron HCl (Zofran Inj) 4 mg IVP Q4H PRN PRN Reason: Nausea/Vomiting Last Admin: 03/26/18 05:46 Dose: 4 mg Pantoprazole Sodium (Protonix Ec Tab) 40 mg PO Q12H JOSE A Last Admin: 03/27/18 21:38 Dose: 40 mg - Labs Labs: 03/27/18 06:30 - Constitutional Appears: No Acute Distress - Head Exam Head Exam: ATRAUMATIC, NORMAL INSPECTION, NORMOCEPHALIC - Eye Exam Eye Exam: Normal appearance, PERRL Pupil Exam: NORMAL ACCOMODATION - ENT Exam ENT Exam: Mucous Membranes Moist - Respiratory Exam Respiratory Exam: Clear to Ausculation Bilateral, NORMAL BREATHING PATTERN. absent: Rales, Rhonchi, Wheezes - Cardiovascular Exam Cardiovascular Exam: REGULAR RHYTHM, +S1, +S2. absent: Gallop, Rubs, Murmur - GI/Abdominal Exam GI & Abdominal Exam: Soft, Tenderness (mild epigastric ), Normal Bowel Sounds - Extremities Exam Extremities Exam: Normal Inspection. absent: Calf Tenderness, Pedal Edema - Neurological Exam Neurological Exam: Alert, Awake, CN II-XII Intact, Oriented x3 - Psychiatric Exam Psychiatric exam: Normal Affect, Normal Mood - Skin Skin Exam: Dry, Warm Assessment and Plan - Assessment and Plan (Free Text) Assessment: This is a 22yo female with past medical history of gastritis admitted for 1. Epigastric pain secondary to chronic gastritis and duodenitis seen on EGD Plan: EGD done with path results pending. Continue PPI as outpatient. Continue regular diet. Patient educated on diet that can cause gastric irritation. Case seen, discussed and reviewed with Dr. Dillard. Car Aviles PGY2 <Bandar Dillard V - Last Filed: 03/28/18 22:22> Objective - Vital Signs/Intake and Output Vital Signs (last 24 hours): Temp Pulse Resp BP Pulse Ox 97.9 F 58 L 20 98/66 L 100 03/28/18 06:00 03/28/18 06:00 03/28/18 06:00 03/28/18 06:00 03/28/18 06:00 - Labs Labs: 03/27/18 06:30 Attending/Attestation - Attestation I have personally seen and examined this patient.: Yes I have fully participated in the care of the patient.: Yes I have reviewed all pertinent clinical information, including history, physical exam and plan: Yes Notes (Text): This is an addendum to GI progress report dictated by the Lead Mechanical Engineer. Medical records, lab studies, imagings were reviewed. Last 24 hours events reviewed. Agreed with the above treatment plan as outlined in Lead Mechanical Engineer 's notes the with the addition of the following patient is tolerating diet Patient was recommended to hav the medical records of this admission for follow- up in [facility]. Patient's mother works as a nurse and she was told clearly last meeting about her need for G follow-up as an outpatient 03/28/18 22:17
[2018-03-28] MEDS: Pantoprazole 40 mg EC Tab PO SCH (10:09)
== END 2018-03-28 14:56 | disposition home or self-care (01) | DRG 392 ==
LOC: ED 23:31 → ERH 03-24 02:45 → 5RSO 03-24 04:17 → OBSVTOIN 03-26 11:19
PROVIDERS: ADMIT Internal Medicine; ATTEND Internal Medicine
PROC: 0DJ08ZZ Inspection of Upper Intestinal Tract, Via Natural or Artificial Opening Endoscopic (ICD-10-PCS; principal; 2018-03-27 12:45)
DX: K52.9 Noninfective gastroenteritis and colitis, unspecified (principal); K29.50 Unspecified chronic gastritis without bleeding; K29.80 Duodenitis without bleeding; K27.9 Peptic ulcer, site unspecified, unspecified as acute or chronic, without hemorrhage or perforation; E86.0 Dehydration; E87.6 Hypokalemia; K21.9 Gastro-esophageal reflux disease without esophagitis; N83.209 Unspecified ovarian cyst, unspecified side; F12.90 Cannabis use, unspecified, uncomplicated; K76.0 Fatty (change of) liver, not elsewhere classified

== ENCOUNTER 2018-04-12 02:31 | Emergency (ER) | payer OTHER ==
[2018-04-12] MEDS ORDERED: Sodium Chloride 0.9% 1,000 ML IV STA (02:49)
[2018-04-12] MEDS ORDERED: Morphine 2 mg/ml ISec IVP STA (02:51)
[2018-04-12] MEDS ORDERED: Morphine 2 mg/ml ISec ONE (02:57)
[2018-04-12 03:34] LABS: BASO # 0.04 K/mm3 (0.0-2.0); BASO % 0.6 % (0.0-3.0); EOS % 0.2 % (1.5-5.0); GRAN # 4.12 (1.4-6.5); LYMPH # 1.9 (1.2-3.4); MEAN CELL VOLUME 79.4 fl (80.0-105.0); MEAN CORPUSCULAR HEMOGLOBIN 28.4 pg (25.0-35.0); MEAN CORPUSCULAR HGB CONC 35.8 g/dl (31.0-37.0); MEAN PLATELET VOLUME 9.5 fl (7.0-11.0); MONO # 0.2 (0.1-0.6); MONO % 3.2 % (1.0-6.0); RBC 4.22 10^6/uL (3.5-6.1); RED CELL DISTRIBUTION WIDTH 14.4 % (11.5-14.5); WHITE BLOOD COUNT 6.2 10^3/ul (4.5-11.0)
[2018-04-12 03:36] LABS: PH,URINE 8.5 (4.7-8.0); URINE BILIRUBIN NEGATIVE (NEGATIVE); URINE BLOOD NEGATIVE (NEGATIVE); URINE GLUCOSE (UA) NEGATIVE (NEGATIVE); URINE LEUKOCYTE ESTERASE NEGATIVE Leu/uL (NEGATIVE); URINE PROTEIN TRACE mg/dL (<30 mg/dL); URINE UROBILINOGEN 0.2 E.U./dL (<1 E.U./dL)
[2018-04-12 03:42] LABS: URINE APPEARANCE CLEAR (CLEAR); URINE COLOR YELLOW (YELLOW)
[2018-04-12 03:43] LABS: INR 0.96 (0.93-1.08); PARTIAL THROMBOPLASTIN TIME 33.1 Seconds (25.1-36.5); PROTHROMBIN TIME 10.9 SECONDS (9.4-12.5)
[2018-04-12 03:49] LABS: URINE BACTERIA MOD (NEG); URINE RBC 0 - 2 /hpf (0-2)
--- NOTE | 2018-04-12 03:50 | ED PDOC ---
Arrival/HPI - General Chief Complaint: Abdominal Pain Time Seen by Provider: 04/12/18 02:33 Historian: Patient - History of Present Illness Narrative History of Present Illness (Text): 04/12/18 02:50 22 year old female, with no significant past medical history, presents to the Emergency department complaining of nausea, vomiting and worsening epigastric discomfort since 1 day. Patient informs pain began gradually yesterday and has been worsening since them prompting her to come to the Emergency department. As per patient, symptoms are similar to her previous episode experienced on for which patient was admitted to the hospital for further observation. Patient denies any recent diet changes or loss of appetite. Patient denies any fever, chills, diarrhea, urinary output changes, changes in bowel movement, back pain, chest pain, shortness of breath or any other somatic complaints. Patient presents to the Emergency department for medical evaluation. Time/Duration: 24 hours Symptom Onset: Gradual Symptom Course: Unchanged Quality: Aching Activities at Onset: Light Context: Home Past Medical History - Provider Review Nursing Documentation Reviewed: Yes - Infectious Disease Hx of Infectious Diseases: None - Tetanus Immunization Tetanus Immunization: Unknown - Cardiac Hx Cardiac Disorders: No - Pulmonary Hx Respiratory Disorders: No - Neurological Hx Neurological Disorder: No - HEENT Hx HEENT Disorder: No - Renal Hx Renal Disorder: No - Endocrine/Metabolic Hx Endocrine Disorders: No - Hematological/Oncological Hx Blood Transfusions: No Hx Blood Transfusion Reaction: No - Integumentary Hx Dermatological Disorder: No - Musculoskeletal/Rheumatological Hx Musculoskeletal Disorders: No - Gastrointestinal Hx Gastrointestinal Disorders: Yes Hx Gastritis: Yes - Genitourinary/Gynecological Hx Genitourinary Disorders: No - Psychiatric Hx Psychophysiologic Disorder: No Hx Substance Use: Yes - Anesthesia Hx Anesthesia: No Hx Anesthesia Reactions: No Hx Malignant Hyperthermia: No Family/Social History - Physician Review Nursing Documentation Reviewed: Yes Family/Social History: No Known Family HX Smoking Status: Never Smoked Hx Alcohol Use: Yes Frequency of alcohol use: Socially Hx Substance Use: Yes Substance used: Marijuana Allergies/Home Meds Allergies/Adverse Reactions: Allergies No Known Allergies Allergy (Verified 04/12/18 02:46) Review of Systems - Physician Review All systems were reviewed & negative as marked: Yes - Review of Systems Constitutional: Normal. absent: Fevers Eyes: Normal ENT: Normal Respiratory: Normal. absent: SOB Cardiovascular: Normal. absent: Chest Pain Gastrointestinal: Abdominal Pain, Nausea, Vomiting. absent: Stool Changes, Diarrhea, Appetite Changes Genitourinary Female: Normal. absent: Hematuria, Urine Output Changes Musculoskeletal: Normal. absent: Back Pain Skin: Normal Neurological: Normal Endocrine: Normal Hemo/Lymphatic: Normal Psychiatric: Normal Physical Exam Vital Signs Reviewed: Yes Vital Signs Temp Pulse Resp BP Pulse Ox 04/12/18 06:52 98.2 F 65 17 128/72 98 04/12/18 05:57 58 L 18 135/87 98 04/12/18 02:46 97.7 F 76 20 155/75 H 99 Temperature: Afebrile Blood Pressure: Normal Pulse: Regular Respiratory Rate: Normal Appearance: Positive for: Well-Appearing, Non-Toxic, Comfortable Pain Distress: None Mental Status: Positive for: Alert and Oriented X 3 - Systems Exam Head: Present: Atraumatic, Normocephalic Pupils: Present: PERRL Extroacular Muscles: Present: EOMI Conjunctiva: Present: Normal Mouth: Present: Moist Mucous Membranes Neck: Present: Normal Range of Motion Respiratory/Chest: Present: Clear to Auscultation, Good Air Exchange. No: Respiratory Distress, Accessory Muscle Use Cardiovascular: Present: Regular Rate and Rhythm, Normal S1, S2. No: Murmurs Abdomen: No: Tenderness, Distention, Peritoneal Signs Back: Present: Normal Inspection Upper Extremity: Present: Normal Inspection. No: Cyanosis, Edema Lower Extremity: Present: Normal Inspection. No: Edema Neurological: Present: GCS=15, CN II-XII Intact, Speech Normal Skin: Present: Warm, Dry, Normal Color. No: Rashes Psychiatric: Present: Alert, Oriented x 3, Normal Insight, Normal Concentration Medical Decision Making ED Course and Treatment: 04/12/18 02:49 Impression: 22 year old female presents to the Emergency department for nausea, vomiting and epigastric discomfort. Plan: -- Labs -- Morphine -- Pepcid -- Protonix -- IV Fluids -- Zofran -- Urinalysis -- Reassess and disposition Prior Visits: Notes and results from previous visits were reviewed. Patient was seen in the Emergency department on 03/24/18 for nausea, vomiting and abdominal pain and was hospitalized for further observation. Progress Notes: - Lab Interpretations Lab Results: 04/12/18 03:05 04/12/18 03:05 Lab Results 04/12/18 03:05: Sodium 141, Potassium 3.9, Chloride 106, Carbon Dioxide 24, Anion Gap 16, BUN 4 L, Creatinine 0.7, Est GFR ( Amer) > 60, Est GFR (Non -Af Amer) > 60, Random Glucose 117 H, Calcium 9.8, Magnesium 1.8, Total Bilirubin 0.7, AST 22, ALT 26, Alkaline Phosphatase 77, Total Protein 7.5, Albumin 4.3, Globulin 3.2, Albumin/Globulin Ratio 1.3, Lipase 57 04/12/18 03:05: Urine Color Yellow, Urine Appearance Clear, Urine pH 8.5, Ur Specific [place] 1.015, Urine Protein Trace H, Urine Glucose (UA) Negative, Urine Ketones Negative, Urine Blood Negative, Urine Nitrate Negative, Urine Bilirubin Negative, Urine Urobilinogen 0.2, Ur Leukocyte Esterase Negative, Urine RBC 0 - 2, Urine WBC 1 - 3, Ur Epithelial Cells 4 - 5, Urine Bacteria Mod 04/12/18 03:05: PT 10.9, INR 0.96, APTT 33.1 04/12/18 03:05: WBC 6.2 D, RBC 4.22, Hgb 12.0, Hct 33.5 L, MCV 79.4 L, MCH 28.4 , MCHC 35.8, RDW 14.4, Plt Count 270, MPV 9.5, Gran % 66.0, Lymph % (Auto) 30.0 , [place] % (Auto) 3.2, Eos % (Auto) 0.2 L, Baso % (Auto) 0.6, Gran # 4.12, Lymph # (Auto) 1.9, [place] # (Auto) 0.2, Eos # (Auto) 0.0, Baso # (Auto) 0.04 - Medication Orders Current Medication Orders: Discontinued Medications Famotidine (Pepcid) 20 mg IVP STAT STA Stop: 04/12/18 02:50 Last Admin: 04/12/18 03:13 Dose: 20 mg IVP Administration Document 04/12/18 03:13 JONNA (Rec: 04/12/18 03:13 JONNA [id number]) Charges for Administration # of IVP Administrations 1 Sodium Chloride (Sodium Chloride 0.9%) 1,000 mls @ 1,000 mls/hr IV .Q1H STA Stop: 04/12/18 03:48 Last Admin: 04/12/18 03:14 Dose: 1,000 mls/hr eMAR Start Stop Document 04/12/18 03:14 JONNA (Rec: 04/12/18 03:14 JONNA [id number]) Intravenous Solution Start Date 04/12/18 Start Time 03:14 End Date 04/12/18 End time 04:14 Total Infusion Time 60 Sodium Chloride (Sodium Chloride 0.9%) 1,000 mls @ 1,000 mls/hr IV .Q1H JOSE A Last Admin: 04/12/18 06:22 Dose: 1,000 mls/hr eMAR Start Stop Document 04/12/18 06:22 IT (Rec: 04/12/18 06:[address] [id number] Intravenous Solution Start Date 04/12/18 Start Time 06:22 End Date 04/12/18 Metoclopramide HCl (Reglan) 10 mg IVP ONCE ONE Stop: 04/12/18 05:15 Last Admin: 04/12/18 05:21 Dose: 10 mg IVP Administration Document 04/12/18 05:21 IT (Rec: 04/12/18 05:[address] [facility] [id number] Charges for Administration # of IVP Administrations 1 Morphine Sulfate (Morphine) 2 mg IVP STAT STA Stop: 04/12/18 02:52 Last Admin: 04/12/18 03:12 Dose: 2 mg MAR Pain Assessment Document 04/12/18 03:12 JONNA (Rec: 04/12/18 03:12 JONNA [id number]) Pain Reassessment Is this a pain reassessment? No IVP Administration Document 04/12/18 03:12 JONNA (Rec: 04/12/18 03:12 JONNA [id number]) Charges for Administration # of IVP Administrations 1 Ondansetron HCl (Zofran Inj) 4 mg IVP STAT STA Stop: 04/12/18 02:50 Last Admin: 04/12/18 03:12 Dose: 4 mg IVP Administration Document 04/12/18 03:12 JONNA (Rec: 04/12/18 03:12 JONNA [id number]) Charges for Administration # of IVP Administrations 1 Pantoprazole Sodium (Protonix Inj) 40 mg IVP ONCE STA Stop: 04/12/18 02:52 Last Admin: 04/12/18 03:12 Dose: 40 mg IVP Administration Document 04/12/18 03:12 JONNA (Rec: 04/12/18 03:12 JONNA [id number]) Charges for Administration # of IVP Administrations 1 - Scribe Statement The provider has reviewed the documentation as recorded by the Scribe Elizabeth Hu. All medical record entries made by the Scribe were at my direction and personally dictated by me. I have reviewed the chart and agree that the record accurately reflects my personal performance of the history, physical exam, medical decision making, and the department course for this patient. I have also personally directed, reviewed, and agree with the discharge instructions and disposition. Disposition/Present on Arrival - Present on Arrival Any Indicators Present on Arrival: No History of DVT/PE: No History of Uncontrolled Diabetes: No Urinary Catheter: No History of Decub. Ulcer: No History Surgical Site Infection Following: None - Disposition Have Diagnosis and Disposition been Completed?: Yes Diagnosis: Abdominal pain Disposition: HOME/ ROUTINE Disposition Time: 06:45 Condition: GOOD Discharge Instructions (ExitCare): Acute Abdomen (Belly Pain), Adult (DC), Nausea and Vomiting, Adult Prescriptions: Ondansetron [Zofran Odt] 8 mg PO TID PRN #10 odt PRN Reason: Nausea/Vomiting Referrals: FAMILY PROVIDER,NO [Primary Care Provider] - Follow up with primary Forms: [employer]less (Pakistani)
[2018-04-12 04:25] LABS: ALB/GLOB RATIO 1.3 (1.1-1.8); ALBUMIN 4.3 g/dL (3.0-4.8); ALT/SGPT 26 U/L (7-56); AST/SGOT 22 U/L (14-36); BLOOD UREA NITROGEN 4 mg/dL (7-21); CALCIUM 9.8 mg/dL (8.4-10.5); GFR AFRICAN-AMERICAN > 60; GFR NON-AFRICAN AMERICAN > 60; LIPASE 57 U/L (23-300)
[2018-04-12] MEDS ORDERED: Sodium Chloride 0.9% 1,000 ML IV SCH (05:45)
[2018-04-12 05:58] VITALS: O2SAT 98
[2018-04-12 06:53] VITALS: BP 128/72; PULSE 65; RESP 17; TEMP 98.2
== END 2018-04-12 06:53 | disposition home or self-care (01) ==
LOC: ED 02:31
DX: R10.9 Unspecified abdominal pain (principal)
CPT/HCPCS: 80053; 81001; 83690; 83735; 85025; 85610; 85730; 96361; 96374; 96375; 99283; C9113; J2270; J2405; J2765; J7030

== ENCOUNTER 2018-04-13 10:48 | Emergency (ER) | payer OTHER ==
[2018-04-13 10:50] VITALS: BMI 24.7
--- NOTE | 2018-04-13 11:20 | ED PDOC ---
Arrival/HPI - General Chief Complaint: GI Problem Time Seen by Provider: 04/13/18 10:58 Historian: Patient, Parent - History of Present Illness Narrative History of Present Illness (Text): 04/13/18 11:13 Pt is a 22 yr old female, who was last seen in the ED one day ago who presents again for nausea, bilious vomiting and worsening epigastric discomfort. Patient reports that despite taking the medication she was given she continues to vomit. Pt was assessed and hospitalized x 7 days for the same symptoms. EGD was done and daily PPI and Zofran was given but symptoms have remained despite negative studies. Pt was asked how she is takes her medications and stated that she takes pantroparazole after eating and takes zofran as needed. Denies shortness of breath, fever, chills, change in urine output, back pain, headache or any psychological complaints. 04/13/18 13:08 Time/Duration: Prior to Arrival Symptom Onset: Gradual Symptom Course: Unchanged Quality: Aching, Pressure Severity Level: 4, 5 Activities at Onset: Rest, Eating Context: Home Past Medical History - Provider Review Nursing Documentation Reviewed: Yes - Travel History Have you recently traveled outside [place] w/in the past 3 mons?: No - Infectious Disease Hx of Infectious Diseases: None - Tetanus Immunization Tetanus Immunization: Unknown - Cardiac Hx Cardiac Disorders: No - Pulmonary Hx Respiratory Disorders: No - Neurological Hx Neurological Disorder: No - HEENT Hx HEENT Disorder: No - Renal Hx Renal Disorder: No - Endocrine/Metabolic Hx Endocrine Disorders: No - Hematological/Oncological Hx Blood Transfusions: No Hx Blood Transfusion Reaction: No - Integumentary Hx Dermatological Disorder: No - Musculoskeletal/Rheumatological Hx Musculoskeletal Disorders: No - Gastrointestinal Hx Gastrointestinal Disorders: Yes Hx Gastritis: Yes - Genitourinary/Gynecological Hx Genitourinary Disorders: No - Psychiatric Hx Psychophysiologic Disorder: No Hx Substance Use: Yes - Anesthesia Hx Anesthesia: Yes Hx Anesthesia Reactions: No Hx Malignant Hyperthermia: No Family/Social History - Physician Review Nursing Documentation Reviewed: Yes Family/Social History: Unknown Family HX Smoking Status: Never Smoked Hx Alcohol Use: Yes Hx Substance Use: Yes Substance used: Marijuana Allergies/Home Meds Allergies/Adverse Reactions: Allergies No Known Allergies Allergy (Verified 04/12/18 02:46) Review of Systems - Review of Systems Constitutional: Normal, Fatigue, Weight Change. absent: Fevers, Night Sweats Eyes: Normal ENT: Sore Throat. absent: Rhinorrhea Respiratory: Normal Cardiovascular: Normal. absent: Chest Pain, Palpitations Gastrointestinal: Normal, Abdominal Pain Genitourinary Female: Normal. absent: Dysuria Musculoskeletal: Normal Skin: Normal Neurological: Normal. absent: Headache, Dizziness Endocrine: Normal. absent: Diaphoresis Hemo/Lymphatic: Normal Psychiatric: Normal. absent: Anxiety Physical Exam Vital Signs Reviewed: Yes Vital Signs Temp Pulse Resp BP Pulse Ox 04/13/18 14:56 98.7 F 59 L 18 97 04/13/18 14:46 98.7 F 58 L 19 140/97 H 99 04/13/18 10:52 98.5 F 56 L 18 137/92 H 97 Temperature: Afebrile Blood Pressure: Normal Pulse: Bradycardic Respiratory Rate: Normal Appearance: Positive for: Well-Appearing, Non-Toxic, Comfortable Pain Distress: Mild Mental Status: Positive for: Alert and Oriented X 3 - Systems Exam Head: Present: Atraumatic, Normocephalic Pupils: Present: PERRL Extroacular Muscles: Present: EOMI Conjunctiva: Present: Normal Mouth: Present: Moist Mucous Membranes Neck: Present: Normal Range of Motion Respiratory/Chest: Present: Clear to Auscultation, Good Air Exchange. No: Respiratory Distress, Accessory Muscle Use Cardiovascular: Present: Regular Rate and Rhythm, Normal S1, S2. No: Murmurs Abdomen: Present: Normal Bowel Sounds. No: Tenderness, Distention, Peritoneal Signs, Rebound, Guarding, McBurney's Point Tender, Rovsing's Sign Present Back: Present: Normal Inspection Upper Extremity: Present: Normal Inspection. No: Cyanosis, Edema Lower Extremity: Present: Normal Inspection. No: Edema Neurological: Present: GCS=15, CN II-XII Intact, Speech Normal Skin: Present: Warm, Dry, Normal Color. No: Rashes Psychiatric: Present: Alert, Oriented x 3, Normal Insight, Normal Concentration Medical Decision Making ED Course and Treatment: 04/13/18 11:20 Impression Pt is a 22 yr old female, who was last seen in the ED one day ago who presents again for nausea, vomiting and worsening epigastric discomfort. On exam, tender to palpation over the epigastric area, pos BS, the rest of the exam benign Working Dx: pt likely is not controlling gastric irritation well due to inappropriate admin of PPI; does not follow recommended diet Plan PPI, pepcid and reglan stat assess and dispo Progress note 04/13/18 12:13 pt c/o severe epigastric pain after receiving dose of toradol, ppi and H2 sujata UA indicates dehydration with some ketones and protein appreciated 04/13/18 12:34 non-bilious vomiting continues despite antiemetics and pain control Head CT w/o contrast ordered along with cbc and cmp diphenhydramine 50 mg ivp stat and famotidine 20 mg ivp Toradol 30 mg ivp Pt reports that she had [employer] yesterday along with a tall lemonade beverage Explained why this triggered her vomiting and pain 04/13/18 13:59 PROCEDURE: CT HEAD WITHOUT CONTRAST. IMPRESSION: No acute findings 04/13/18 14:18 Pt finally resting well after receiving additional meds states she feels hungry for the first time in days; will monitor and dispo home Discussed the importance of taking meds properly and adhering to a very bland diet (BRAT) Needs to f/u with PMD in the next few days Pt hemodynamically stable on d/c and ambulated well 04/13/18 16:59 - Lab Interpretations Lab Results: 04/13/18 11:43 04/13/18 11:43 Lab Results 04/13/18 11:52: Urine Color Yellow, Urine Appearance Clear, Urine pH 6.5, Ur Specific [place] 1.020, Urine Protein Trace H, Urine Glucose (UA) Negative, Urine Ketones 15 H, Urine Blood Negative, Urine Nitrate Negative, Urine Bilirubin Small H, Urine Urobilinogen 1.0 H, Ur Leukocyte Esterase Negative, Urine RBC 0 - 2, Urine WBC 0 - 2, Ur Epithelial Cells 4 - 5, Urine Bacteria Many , Urine Other Uyeast 04/13/18 11:43: Sodium 140, Potassium 3.8, Chloride 102, Carbon Dioxide 24, Anion Gap 18, BUN 8, Creatinine 0.8, Est GFR ( Amer) > 60, Est GFR (Non- Af Amer) > 60, Random Glucose 92, Calcium 9.9, Total Bilirubin 1.3, AST 29, ALT 33, Alkaline Phosphatase 81, Total Protein 8.0, Albumin 4.5, Globulin 3.5, Albumin/Globulin Ratio 1.3 04/13/18 11:43: WBC 7.1, RBC 4.26, Hgb 12.2, Hct 33.2 L, MCV 77.9 L, MCH 28.6, MCHC 36.7, RDW 14.2, Plt Count 275, MPV 9.7, Gran % 67.4, Lymph % (Auto) 27.0, [place] % (Auto) 5.5, Eos % (Auto) 0.0 L, Baso % (Auto) 0.1, Gran # 4.78, Lymph # ( Auto) 1.9, [place] # (Auto) 0.4, Eos # (Auto) 0.0, Baso # (Auto) 0.01 - RAD Interpretation Narrative RAD Interpretations (Text): 04/13/18 13:59 PROCEDURE: CT HEAD WITHOUT CONTRAST. HISTORY: intractable vomiting COMPARISON: None available. TECHNIQUE: Axial computed tomography images were obtained through the head/brain without intravenous contrast. Radiation dose: Total exam DLP = 900 mGy-cm. This CT exam was performed using one or more of the following dose reduction techniques: Automated exposure control, adjustment of the mA and/or kV according to patient size, and/or use of iterative reconstruction technique. FINDINGS: HEMORRHAGE: No intracranial hemorrhage. BRAIN: No mass effect or edema. No atrophy or chronic microvascular ischemic changes. VENTRICLES: Unremarkable. No hydrocephalus. CALVARIUM: Unremarkable. PARANASAL SINUSES: Unremarkable as visualized. No significant inflammatory changes. MASTOID AIR CELLS: Unremarkable as visualized. No inflammatory changes. OTHER FINDINGS: None. IMPRESSION: No acute findings Radiology Orders: 04/13/18 12:39 HEAD W/O CONTRAST [CT] Stat - Medication Orders Current Medication Orders: Discontinued Medications Diphenhydramine HCl (Benadryl) 50 mg IVP STAT STA Stop: 04/13/18 12:42 Last Admin: 04/13/18 13:28 Dose: 50 mg IVP Administration Document 04/13/18 13:28 [email or web address] (Rec: 04/13/18 13:28 [email or web address] [facility] [place] [id number]) Charges for Administration # of IVP Administrations 1 Famotidine (Pepcid) 20 mg IVP STAT STA Stop: 04/13/18 11:29 Last Admin: 04/13/18 11:46 Dose: 20 mg IVP Administration Document 04/13/18 11:46 [email or web address] (Rec: 04/13/18 11:[address] [id number]) Charges for Administration # of IVP Administrations 1 Famotidine (Pepcid) 20 mg IVP DAILY JOSE A Last Admin: 04/13/18 13:28 Dose: 20 mg IVP Administration Document 04/13/18 13:28 [email or web address] (Rec: 04/13/18 13:[address] [id number]) Charges for Administration # of IVP Administrations 1 Sodium Chloride (Sodium Chloride 0.9%) 500 mls @ 999 mls/hr IV .Q31M STA Stop: 04/13/18 12:00 Last Admin: 04/13/18 11:45 Dose: 999 mls/hr eMAR Start Stop Document 04/13/18 11:45 [email or web address] (Rec: 04/13/18 11:[address] [id number]) Intravenous Solution Start Date 04/13/18 Start Time 11:45 Ketorolac Tromethamine (Toradol) 30 mg IVP STAT STA Stop: 04/13/18 11:35 Last Admin: 04/13/18 11:46 Dose: 30 mg MAR Pain Assessment Document 04/13/18 11:46 CAST (Rec: 04/13/18 11:[address] [id number]) Pain Reassessment Is this a pain reassessment? No Sleep Is patient sleeping during reassessment? No Presence of Pain Presence of Pain Yes Pain Scale Used Pain Scale Used Numeric Location Pain Location Body Site Abdomen Description Description Constant Intensity of Pain at present 7 Pain Behavior Facial Grimacing Aggravating Factors Changing Position Alleviating Factors/Management Medication Techniques Alleviating Factors Medication IVP Administration Document 04/13/18 11:46 [email or web address] (Rec: 04/13/18 11:[address] [id number]) Charges for Administration # of IVP Administrations 1 Ketorolac Tromethamine (Toradol) 15 mg IVP STAT STA Stop: 04/13/18 13:08 Last Admin: 04/13/18 13:28 Dose: 15 mg MAR Pain Assessment Document 04/13/18 13:28 [email or web address] (Rec: 04/13/18 13:[address] [id number]) Pain Reassessment Is this a pain reassessment? No Sleep Is patient sleeping during reassessment? No Presence of Pain Presence of Pain Yes Pain Scale Used Pain Scale Used Numeric Location Pain Location Body Site Abdomen Description Description Constant Intensity of Pain at present 7 Pain Behavior Facial Grimacing Alleviating Factors/Management Medication Techniques Alleviating Factors Medication IVP Administration Document 04/13/18 13:28 [email or web address] (Rec: 04/13/18 13:28 [email or web address] [facility] [place] [id number][place] Charges for Administration # of IVP Administrations 1 Metoclopramide HCl (Reglan) 10 mg IVP STAT STA Stop: 04/13/18 11:31 Last Admin: 04/13/18 11:46 Dose: 10 mg IVP Administration Document 04/13/18 11:46 [email or web address] (Rec: 04/13/18 11:[address]- [id number]) Charges for Administration # of IVP Administrations 1 Disposition/Present on Arrival - Present on Arrival Any Indicators Present on Arrival: Yes History of DVT/PE: No History of Uncontrolled Diabetes: No Urinary Catheter: No History of Decub. Ulcer: No History Surgical Site Infection Following: None - Disposition Have Diagnosis and Disposition been Completed?: Yes Diagnosis: Gastritis and duodenitis, Intractable cyclical vomiting with nausea Disposition: HOME/ ROUTINE Disposition Time: 14:30 Patient Plan: Discharge Condition: STABLE Discharge Instructions (ExitCare): Nausea and Vomiting, Adult (DC), Gastritis ( DC) Additional Instructions: JENNIFER NEWBY, thank you for letting us take care of you today. Your provider was Simone Beth DO and Karlie LAM and you were treated for Gastritis and Vomiting. The emergency medical care you received today was directed at your acute symptoms. If you were prescribed any medication, please fill it and take as directed. It may take several days for your symptoms to resolve. Return to the Emergency Department if your symptoms worsen, do not improve, or if you have any other problems. Please see a Primary Care Doctor for follow up care in the office and any required refills of the medications you are taking. Remember to eat ONLY a bland diet of white rice, banana, applesauce, toast, etc and AVOID spice, grease and dairy. Take the pantoprazole first thing in the morning, 30 minutes before eating. Take the rest of the medication on time as recommended. Please contact your doctor or call one of the physicians/clinics you have been referred to that are listed on the Patient Visit Information form that is included in your discharge packet. Bring any paperwork you were given at discharge with you along with any medications you are taking to your follow up visit. Our treatment cannot replace ongoing medical care by a primary care provider outside of the emergency department. Thank you for allowing the [facility] team to be part of your care today. If you had an X-Ray or CT scan: A Radiologist will review the ED reading if any change in treatment is needed we will contact you. Prescriptions: Acetaminophen [Tylenol 8 Hour] 650 mg PO Q6 #20 tablet.er DiphenhydrAMINE [Benadryl] 50 mg PO Q8 5 Days #15 cap Famotidine [Pepcid] 40 mg PO Q12 5 Days #10 tablet Forms: [employer]), WORK NOTE
[2018-04-13] MEDS ORDERED: Sodium Chloride 0.9% 500 ML IV STA (11:30)
[2018-04-13 11:59] LABS: PH,URINE 6.5 (4.7-8.0); URINE BILIRUBIN SMALL (NEGATIVE); URINE BLOOD NEGATIVE (NEGATIVE); URINE GLUCOSE (UA) NEGATIVE (NEGATIVE); URINE LEUKOCYTE ESTERASE NEGATIVE Leu/uL (NEGATIVE); URINE PROTEIN TRACE mg/dL (<30 mg/dL)
[2018-04-13 12:02] LABS: URINE APPEARANCE CLEAR (CLEAR); URINE COLOR YELLOW (YELLOW)
[2018-04-13 12:05] LABS: URINE BACTERIA MANY (NEG); URINE RBC 0 - 2 /hpf (0-2); URINE WBC 0 - 2 /hpf (0-6)
[2018-04-13] MEDS ORDERED: DiphenhydrAMINE 50 mg/ml Inj IVP STA (12:41)
[2018-04-13 13:02] LABS: BASO # 0.01 K/mm3 (0.0-2.0); BASO % 0.1 % (0.0-3.0); GRAN # 4.78 (1.4-6.5); GRAN % 67.4 % (50.0-68.0); HEMOGLOBIN 12.2 g/dL (12.0-16.0); LYMPH # 1.9 (1.2-3.4); MEAN CELL VOLUME 77.9 fl (80.0-105.0); MEAN CORPUSCULAR HEMOGLOBIN 28.6 pg (25.0-35.0); MEAN CORPUSCULAR HGB CONC 36.7 g/dl (31.0-37.0); MEAN PLATELET VOLUME 9.7 fl (7.0-11.0); MONO # 0.4 (0.1-0.6); MONO % 5.5 % (1.0-6.0); RBC 4.26 10^6/uL (3.5-6.1); RED CELL DISTRIBUTION WIDTH 14.2 % (11.5-14.5); WHITE BLOOD COUNT 7.1 10^3/ul (4.5-11.0)
[2018-04-13 13:14] LABS: ALB/GLOB RATIO 1.3 (1.1-1.8); ALBUMIN 4.5 g/dL (3.0-4.8); ALT/SGPT 33 U/L (7-56); AST/SGOT 29 U/L (14-36); BLOOD UREA NITROGEN 8 mg/dL (7-21); CALCIUM 9.9 mg/dL (8.4-10.5); GFR AFRICAN-AMERICAN > 60; GFR NON-AFRICAN AMERICAN > 60
--- NOTE | 2018-04-13 13:43 | CT ---
PROCEDURE: CT HEAD WITHOUT CONTRAST. HISTORY: intractable vomiting COMPARISON: None available. TECHNIQUE: Axial computed tomography images were obtained through the head/brain without intravenous contrast. Radiation dose: Total exam DLP = 900 mGy-cm. This CT exam was performed using one or more of the following dose reduction techniques: Automated exposure control, adjustment of the mA and/or kV according to patient size, and/or use of iterative reconstruction technique. FINDINGS: HEMORRHAGE: No intracranial hemorrhage. BRAIN: No mass effect or edema. No atrophy or chronic microvascular ischemic changes. VENTRICLES: Unremarkable. No hydrocephalus. CALVARIUM: Unremarkable. PARANASAL SINUSES: Unremarkable as visualized. No significant inflammatory changes. MASTOID AIR CELLS: Unremarkable as visualized. No inflammatory changes. OTHER FINDINGS: None. IMPRESSION: No acute findings
[2018-04-13 14:46] VITALS: BP 140/97; TEMP 98.7
[2018-04-13 14:57] VITALS: PULSE 59; RESP 18; O2SAT 97
== END 2018-04-13 15:07 | disposition home or self-care (01) ==
LOC: ED 10:48
DX: G43.A1 Cyclical vomiting, in migraine, intractable (principal); R11.0 Nausea; K29.70 Gastritis, unspecified, without bleeding; K29.80 Duodenitis without bleeding
CPT/HCPCS: 70450; 80053; 81001; 85025; 96374; 96375; 96376; 99283; J1200; J1885; J2765; J7040

== ENCOUNTER 2018-06-07 17:38 | Observation (INO) | payer OTHER ==
[2018-06-07 18:03] VITALS: BMI 23.3
[2018-06-07] MEDS ORDERED: Sodium Chloride 0.9% 1,000 ML IV STA ×2 (18:18→19:51)
--- NOTE | 2018-06-07 18:23 | ED PDOC ---
Arrival/HPI <Paola Mann P - Last Filed: 06/08/18 01:25> - General Historian: Patient <Kobe Li - Last Filed: 06/09/18 10:01> - General Chief Complaint: Abdominal Pain Time Seen by Provider: 06/07/18 18:08 - History of Present Illness Narrative History of Present Illness (Text): 06/07/18 18:20 22 y/o, female, pmh including chronic gastritis, nkda, c/o epigastric gastritis pain started about 4 hours ago. pt. stated that she had some fruit and waffle around 11am, 2 hours later started to have epigastric pain, chronic gastritis but not compliant with her PPI, admits chronic history abuse of cannabinoid, no fever or chills, feels nausea but no vomiting, no night sweat, no chest pain or shortness of breath, no numbness or tingling, no other medical or psychological complaints. (Kobe Li) Past Medical History - Provider Review Nursing Documentation Reviewed: Yes - Infectious Disease Hx of Infectious Diseases: None - Tetanus Immunization Tetanus Immunization: Unknown - Cardiac Hx Cardiac Disorders: No - Pulmonary Hx Respiratory Disorders: No - Neurological Hx Neurological Disorder: No - HEENT Hx HEENT Disorder: No - Renal Hx Renal Disorder: No - Endocrine/Metabolic Hx Endocrine Disorders: No - Hematological/Oncological Hx Blood Transfusions: No Hx Blood Transfusion Reaction: No - Integumentary Hx Dermatological Disorder: No - Musculoskeletal/Rheumatological Hx Musculoskeletal Disorders: No - Gastrointestinal Hx Gastrointestinal Disorders: Yes Hx Gastritis: Yes - Genitourinary/Gynecological Hx Genitourinary Disorders: No - Psychiatric Hx Psychophysiologic Disorder: No Hx Substance Use: Yes - Anesthesia Hx Anesthesia: Yes <Kobe Li - Last Filed: 06/09/18 10:01> Family/Social History - Physician Review Nursing Documentation Reviewed: Yes Family/Social History: Unknown Family HX Smoking Status: Never Smoked Hx Alcohol Use: Yes Hx Substance Use: Yes Substance used: Marijuana <Kobe Li - Last Filed: 06/09/18 10:01> Allergies/Home Meds <Paola Mann P - Last Filed: 06/08/18 01:25> <Kobe Li - Last Filed: 06/09/18 10:01> Allergies/Adverse Reactions: Allergies No Known Allergies Allergy (Verified 04/12/18 02:46) Review of Systems - Review of Systems Constitutional: absent: Fatigue, Fevers Eyes: absent: Vision Changes ENT: absent: Hearing Changes Respiratory: absent: SOB, Cough Cardiovascular: absent: Chest Pain Gastrointestinal: Abdominal Pain, Nausea. absent: Diarrhea, Vomiting Skin: absent: Rash, Pruritis Neurological: absent: Headache, Dizziness Psychiatric: absent: Anxiety, Depression, Suicidal Ideation <Kobe Li Q - Last Filed: 06/09/18 10:01> Physical Exam Pain Distress: Moderate Mental Status: Positive for: Alert and Oriented X 3 - Systems Exam Head: Present: Atraumatic, Normocephalic Pupils: Present: PERRL Extroacular Muscles: Present: EOMI Conjunctiva: Present: Normal Mouth: Present: Moist Mucous Membranes Neck: Present: Normal Range of Motion Respiratory/Chest: Present: Clear to Auscultation, Good Air Exchange. No: Respiratory Distress, Accessory Muscle Use Cardiovascular: Present: Regular Rate and Rhythm, Normal S1, S2. No: Murmurs Abdomen: Present: Tenderness (+epigastric tenderness). No: Distention, Peritoneal Signs, Rebound, Guarding, McBurney's Point Tender, Rovsing's Sign Present Back: Present: Normal Inspection Upper Extremity: Present: Normal Inspection. No: Cyanosis, Edema Lower Extremity: Present: Normal Inspection. No: Edema Neurological: Present: GCS=15, CN II-XII Intact, Speech Normal Skin: Present: Warm, Dry, Normal Color. No: Rashes Psychiatric: Present: Alert, Oriented x 3, Normal Insight, Normal Concentration <Kobe Li Q - Last Filed: 06/09/18 10:01> Vital Signs Temp Pulse Resp BP Pulse Ox 06/07/18 19:43 98.0 F 50 L 20 132/89 95 06/07/18 18:03 98.2 F 86 18 110/89 98 06/07/18 17:38 97.7 F 72 20 127/78 98 Medical Decision Making Re-evaluation Time: 01:29 Reassessment Condition: Re-examined, Improving,but remains with symptoms <Paola Mann P - Last Filed: 06/08/18 01:25> - Lab Interpretations I have reviewed the lab results: Yes - RAD Interpretation Curtain Cutter: Radiologist <Kobe Li Q - Last Filed: 06/09/18 10:01> ED Course and Treatment: 06/08/18 01:00 I revaluated patient. Patient stated she continues with mild nausea, and with epigastric pain. Abdomen is soft, nt/nd. Patient agrees with plan for observation. lungs CTA b/l. VS are stable. Patient is afebrile. Pending CT result. 06/08/18 01:[address] Taniya Woody , PMD regarding patient intractable nausea, and vomiting with epigstric mendieta. labs are WNL. Patient continues with mild nausea. She agrees with plan for observation for intractable vomiting. (Paola Mann) 06/07/18 18:22 Differential: Cholecystitis vs. Gastritis vs. Pancreatitis vs. Ectopic vs. UTI vs. Dehydration vs. Electrolyte imbalance -Labs/lipase/UA -Gallbladder sonogram -IVF/pepcid/zofran/toradol -Observe and reassess 06/07/18 19:54 -Gall bladder sonogram: IMPRESSION: No acute abnormalities are noted within the right upper quadrant. Minimal nonspecific pericholecystic fluid. -Urine hcg is negative. -Labs show no acute findings except potassium 3.5 (potassium chloride 20meq po ordered) -Lipase within normal limit -UA show no UTI -Pt. doesn't feel any better, still has intractable vomiting with bile, CT abdomen/pelvis and chest xray order. -IV ativan 1mg/reglan 10mg/protonix 40mg ordered, another 1000cc fluid ordered. 06/07/18 19:59 -Pending CT abdomen/pelvis and chest xray -Will re-evaluate the patient and see how she feels. 06/07/18 20:50 -Case discussed and endorsed to the incoming PA Paola Mann to follow up on the: CT abdominal/pelvis with chest xray and re-evaluate the patient. (Kobe Li) - Lab Interpretations Lab Results: 06/07/18 18:00 06/07/18 18:00 Lab Results 06/07/18 18:00: Alcohol, Quantitative < 10 06/07/18 18:00: Sodium 143, Potassium 3.5 L, Chloride 107, Carbon Dioxide 24, Anion Gap 16, BUN 7, Creatinine 0.7, Est GFR ( Amer) > 60, Est GFR (Non- Af Amer) > 60, Random Glucose 125 H, Calcium 9.6, Total Bilirubin 1.1, AST 24, ALT 22, Alkaline Phosphatase 87, Total Protein 8.3, Albumin 4.6, Globulin 3.6, Albumin/Globulin Ratio 1.3, Lipase 53 06/07/18 18:00: Urine Color Yellow, Urine Appearance Turbid, Urine pH 8.5, Ur Specific [place] 1.020, Urine Protein Trace H, Urine Glucose (UA) Negative, Urine Ketones 40 H, Urine Blood Large H, Urine Nitrate Negative, Urine Bilirubin Negative, Urine Urobilinogen 0.2, Ur Leukocyte Esterase Negative, Urine RBC Tntc, Urine WBC 1 - 3, Urine Bacteria Few 06/07/18 18:00: WBC 8.0, RBC 4.49, Hgb 12.9, Hct 35.4 L, MCV 78.8 L, MCH 28.7, MCHC 36.4, RDW 13.5, Plt Count 249, MPV 10.0, Gran % 74.9 H, Lymph % (Auto) 22.2 , [place] % (Auto) 2.6, Eos % (Auto) 0.1 L, Baso % (Auto) 0.2, Gran # 6.01, Lymph # (Auto) 1.8, [place] # (Auto) 0.2, Eos # (Auto) 0.0, Baso # (Auto) 0.02 - RAD Interpretation Radiology Orders: 06/07/18 18:18 GALL BLADDER [US] Stat 06/07/18 19:53 CHEST PORTABLE [RAD] Stat 06/07/18 20:25 ABDOMEN & PELVIS [ABD & PELVIS IV CONTRAST ONLY] [CT] Stat Liver: Liver is 13.6 cm. No intrahepatic bile duct dilation. Gallbladder: Minimal nonspecific pericholecystic fluid. Gallbladder wall thickness 1.8 mm. Sonographic Nicole's sign is negative. Common bile duct: Common bile duct is 2.4 mm. No stones. No dilation. Pancreas: Unremarkable as visualized. Right kidney: Right kidney is 9 cm. No stones. No hydronephrosis. IMPRESSION: No acute abnormalities are noted within the right upper quadrant. Minimal nonspecific pericholecystic fluid. Thank you for allowing us to participate in the care of your patient. Dictated and Authenticated by: Ti Vuong MD 06/07/2018 7:42 PM Eastern Time ([place] & [place]) (Li,Kobe Q) - Medication Orders Current Medication Orders: Acetaminophen (Tylenol 325mg Tab) 650 mg PO Q6H PRN PRN Reason: Pain, Mild (1-3) Sodium Chloride (Sodium Chloride 0.9%) 1,000 mls @ 100 mls/hr IV .Q10H [facility] Last Admin: 06/08/18 15:35 Dose: 100 mls/hr eMAR Start Stop Document 06/08/18 15:35 AJ (Rec: 06/08/18 15:35 AJ [id number]) Intravenous Solution Start Date 06/08/18 Start Time 15:35 Ketorolac Tromethamine (Toradol) 30 mg IVP Q8 PRN PRN Reason: Pain, moderate (4-7) Last Admin: 06/09/18 04:32 Dose: 30 mg MAR Pain Assessment Document 06/09/18 04:32 MJ (Rec: 06/09/18 04:33 MJ [id number]) Pain Reassessment Is this a pain reassessment? No Sleep Is patient sleeping during reassessment? No Presence of Pain Presence of Pain Yes Pain Scale Used Pain Scale Used Numeric Location Pain Location Body Site Abdomen Description Description Constant Intensity of Pain at present 8 Pain Behavior Moaning Crying Alleviating Factors/Management Medication Techniques Alleviating Factors Medication IVP Administration Document 06/09/18 04:32 MJ (Rec: 06/09/18 04:33 MJ [id number]) Charges for Administration # of IVP Administrations 1 Metoclopramide HCl (Reglan) 10 mg IVP Q6H [facility] Stop: 06/10/18 11:16 Last Admin: 06/09/18 06:13 Dose: 10 mg IVP Administration Document 06/09/18 06:13 MJ (Rec: 06/09/18 06:13 MJ [id number]) Charges for Administration # of IVP Administrations 1 Morphine Sulfate (Morphine) 2 mg IVP Q4H PRN PRN Reason: Pain, severe (8-10) Last Admin: 06/08/18 22:03 Dose: 2 mg MAR Pain Assessment Document 06/08/18 22:03 MJ (Rec: 06/08/18 22:04 MJ [id number]) Pain Reassessment Is this a pain reassessment? No Sleep Is patient sleeping during reassessment? No Presence of Pain Presence of Pain Yes Pain Scale Used Pain Scale Used Numeric Location Pain Location Body Site Abdomen Description Description Constant Intensity of Pain at present 8 Pain Behavior Moaning Crying Facial Grimacing Alleviating Factors/Management Medication Techniques Alleviating Factors Medication IVP Administration Document 06/08/18 22:03 MJ (Rec: 06/08/18 22:04 [id number]) Charges for Administration # of IVP Administrations 1 Ondansetron HCl (Zofran Inj) 4 mg IVP Q6H PRN PRN Reason: Nausea/Vomiting Last Admin: 06/09/18 04:32 Dose: 4 mg IVP Administration Document 06/09/18 04:32 MJ (Rec: 06/09/18 04:32 [id number]) Charges for Administration # of IVP Administrations 1 Pantoprazole Sodium (Protonix Inj) 40 mg IVP Q12H JOSE A Last Admin: 06/08/18 22:04 Dose: 40 mg IVP Administration Document 06/08/18 22:04 MJ (Rec: 06/08/18 22:04 [id number]) Charges for Administration # of IVP Administrations 1 Discontinued Medications Famotidine (Pepcid) 20 mg IVP STAT STA Stop: 06/07/18 18:19 Last Admin: 06/07/18 18:26 Dose: 20 mg IVP Administration Document 06/07/18 18:26 LA (Rec: 06/07/18 18:26 LA [id number]) Charges for Administration # of IVP Administrations 1 Sodium Chloride (Sodium Chloride 0.9%) 1,000 mls @ 999 mls/hr IV .Q1H1M [facility] Stop: 06/07/18 19:18 Last Admin: 06/07/18 18:24 Dose: 999 mls/hr eMAR Start Stop Document 06/07/18 18:24 LA (Rec: 06/07/18 18:24 LA [id number]) Intravenous Solution Start Date 06/07/18 Start Time 18:24 End Date 06/07/18 End time 19:25 Total Infusion Time 61 Sodium Chloride (Sodium Chloride 0.9%) 1,000 mls @ 999 mls/hr IV .Q1H1M ST[facility] Stop: 06/07/18 20:51 Last Admin: 06/07/18 20:20 Dose: 999 mls/hr eMAR Start Stop Document 06/07/18 20:20 JOL (Rec: 06/07/18 20:20 JOL [id number]) Intravenous Solution Start Date 06/07/18 Start Time 20:20 End Date 06/07/18 End time 21:20 Total Infusion Time 60 Ketorolac Tromethamine (Toradol) 30 mg IVP STAT STA Stop: 06/07/18 18:21 Last Admin: 06/07/18 18:26 Dose: 30 mg MAR Pain Assessment Document 06/07/18 18:26 LA (Rec: 06/07/18 18:27 LA [id number]) Pain Reassessment Is this a pain reassessment? No Sleep Is patient sleeping during reassessment? No Presence of Pain Presence of Pain Yes Pain Scale Used Pain Scale Used Numeric Location Pain Location Body Site Abdomen Description Description Intermittent Intensity of Pain at present 10 Pain Behavior Crying Guarding IVP Administration Document 06/07/18 18:26 LA (Rec: 06/07/18 18:27 LA [id number]) Charges for Administration # of IVP Administrations 1 Lorazepam (Ativan) 1 mg IVP ONCE ONE PRN Reason: Protocol Stop: 06/07/18 19:52 Last Admin: 06/07/18 20:19 Dose: 1 mg IVP Administration Document 06/07/18 20:19 JOL (Rec: 06/07/18 20:19 JOL [id number]) Charges for Administration # of IVP Administrations 1 Metoclopramide HCl (Reglan) 10 mg IVP STAT STA Stop: 06/07/18 19:52 Last Admin: 06/07/18 20:19 Dose: 10 mg IVP Administration Document 06/07/18 20:19 JOL (Rec: 06/07/18 20:19 JOL [id number]) Charges for Administration # of IVP Administrations 1 Ondansetron HCl (Zofran Inj) 4 mg IVP STAT STA Stop: 06/07/18 18:19 Last Admin: 06/07/18 18:27 Dose: 4 mg IVP Administration Document 06/07/18 18:27 LA (Rec: 06/07/18 18:27 LA [id number]) Charges for Administration # of IVP Administrations 1 Ondansetron HCl (Zofran Inj) 4 mg IVP STAT STA Stop: 06/08/18 01:19 Last Admin: 06/08/18 02:13 Dose: 4 mg IVP Administration Document 06/08/18 02:13 JOL (Rec: 06/08/18 02:13 [id number] Charges for Administration # of IVP Administrations 1 Ondansetron HCl (Zofran Inj) 4 mg IVP Q4H [facility] Last Admin: 06/08/18 09:53 Dose: 4 mg IVP Administration Document 06/08/18 09:53 AJ (Rec: 06/08/18 09:53 [id number]) Charges for Administration # of IVP Administrations 1 Pantoprazole Sodium (Protonix Inj) 40 mg IVP STAT STA Stop: 06/07/18 19:52 Last Admin: 06/07/18 20:19 Dose: 40 mg IVP Administration Document 06/07/18 20:19 JOL (Rec: 06/07/18 20:19 [id number]) Charges for Administration # of IVP Administrations 1 Pantoprazole Sodium (Protonix Inj) 40 mg IVP STAT STA Stop: 06/08/18 10:31 Last Admin: 06/08/18 10:56 Dose: 40 mg IVP Administration Document 06/08/18 10:56 AJ (Rec: 06/08/18 10:56 [id number]) Charges for Administration # of IVP Administrations 1 Potassium Chloride (K-Dur 20 Meq Er Tab) 20 meq PO STAT STA Stop: 06/07/18 18:46 - PA / ANDROID UI DEVELOPER / Resident Statement / has reviewed & agrees with the documentation as recorded. <Kobe Li - Last Filed: 06/09/18 10:01> Disposition/Present on Arrival <Paola Mann - Last Filed: 06/08/18 01:25> - Present on Arrival Any Indicators Present on Arrival: No History of DVT/PE: No History of Uncontrolled Diabetes: No Urinary Catheter: No History of Decub. Ulcer: No History Surgical Site Infection Following: None - Disposition Have Diagnosis and Disposition been Completed?: Yes Disposition Time: 19:52 Patient Plan: Admission, Observation <Kobe Li - Last Filed: 06/09/18 10:01> - Disposition Diagnosis: Intractable cyclical vomiting with nausea, Abdominal pain Disposition: HOSPITALIZED Patient Problems: Current Active Problems Problem Status Onset Abdominal pain Acute Intractable cyclical vomiting with nausea Acute Condition: STABLE
[2018-06-07 18:36] LABS: BASO # 0.02 K/mm3 (0.0-2.0); BASO % 0.2 % (0.0-3.0); EOS % 0.1 % (1.5-5.0); GRAN # 6.01 (1.4-6.5); GRAN % 74.9 % (50.0-68.0); HEMOGLOBIN 12.9 g/dL (12.0-16.0); LYMPH # 1.8 (1.2-3.4); LYMPH % 22.2 % (22.0-35.0); MEAN CELL VOLUME 78.8 fl (80.0-105.0); MEAN CORPUSCULAR HEMOGLOBIN 28.7 pg (25.0-35.0); MEAN CORPUSCULAR HGB CONC 36.4 g/dl (31.0-37.0); MONO # 0.2 (0.1-0.6); MONO % 2.6 % (1.0-6.0); RBC 4.49 10^6/uL (3.5-6.1); RED CELL DISTRIBUTION WIDTH 13.5 % (11.5-14.5)
[2018-06-07 18:38] LABS: PH,URINE 8.5 (4.7-8.0); URINE BILIRUBIN NEGATIVE (NEGATIVE); URINE BLOOD LARGE (NEGATIVE); URINE GLUCOSE (UA) NEGATIVE (NEGATIVE); URINE LEUKOCYTE ESTERASE NEGATIVE Leu/uL (NEGATIVE); URINE PROTEIN TRACE mg/dL (<30 mg/dL); URINE UROBILINOGEN 0.2 E.U./dL (<1 E.U./dL)
[2018-06-07 18:40] LABS: URINE APPEARANCE TURBID (CLEAR); URINE COLOR YELLOW (YELLOW)
[2018-06-07 18:43] LABS: ALB/GLOB RATIO 1.3 (1.1-1.8); ALBUMIN 4.6 g/dL (3.0-4.8); ALT/SGPT 22 U/L (7-56); AST/SGOT 24 U/L (14-36); BLOOD UREA NITROGEN 7 mg/dL (7-21); CALCIUM 9.6 mg/dL (8.4-10.5); GFR AFRICAN-AMERICAN > 60; GFR NON-AFRICAN AMERICAN > 60; LIPASE 53 U/L (23-300)
[2018-06-07] MEDS ORDERED: Potassium Chloride 20 mEq ER Tab PO STA (18:45)
[2018-06-07 18:46] LABS: URINE BACTERIA FEW (NEG); URINE RBC TNTC /hpf (0-2)
[2018-06-07] MEDS ORDERED: Iohexol 350 MG/100 ML VIAL ONE (22:55)
[2018-06-08] MEDS: Sodium Chloride 0.9% 1,000 ML IV SCH ×2 (03:11→15:35)
--- NOTE | 2018-06-08 10:18 | RAD ---
Date of service: 06/07/2018 HISTORY: medical clearance COMPARISON: 03/24/2018. FINDINGS: LUNGS: The lungs are well inflated and clear. PLEURA: No significant pleural effusion identified, no pneumothorax apparent. CARDIOVASCULAR: Normal. OSSEOUS STRUCTURES: No significant abnormalities. VISUALIZED UPPER ABDOMEN: Normal. OTHER FINDINGS: None. IMPRESSION: No active pulmonary disease.
--- NOTE | 2018-06-08 10:28 | CT ---
Date of service: 06/08/2018 PROCEDURE: CT Abdomen and Pelvis with contrast HISTORY: upper abdominal pain, intractable vomit COMPARISON: 03/24/2018 TECHNIQUE: Contrast dose: 94 cc of Omni 350 Radiation dose: Total exam DLP = 351 mGy-cm. This CT exam was performed using one or more of the following dose reduction techniques: Automated exposure control, adjustment of the mA and/or kV according to patient size, and/or use of iterative reconstruction technique. FINDINGS: LOWER THORAX: Unremarkable. LIVER: Unremarkable. No gross lesion or ductal dilatation. GALLBLADDER AND BILE DUCTS: There is a small amount of pericholecystic fluid. PANCREAS: Unremarkable. No gross lesion or ductal dilatation. SPLEEN: Unremarkable. ADRENALS: Unremarkable. No mass. KIDNEYS AND URETERS: Unremarkable. No hydronephrosis. No solid mass. VASCULATURE: Unremarkable. No aortic aneurysm. BOWEL: Unremarkable. No obstruction. No gross mural thickening. APPENDIX: Normal appendix. PERITONEUM: There is a small amount of free fluid in the pelvis LYMPH NODES: Unremarkable. No enlarged lymph nodes. BLADDER: Unremarkable. REPRODUCTIVE: Enlarged varices can be seen on the left side of the pelvis BONES: No acute fracture. OTHER FINDINGS: The report concurs with the preliminary [facility] report IMPRESSION: No acute intra-abdominal findings.
--- NOTE | 2018-06-08 11:42 | US ---
Date of service: 06/07/2018 HISTORY: Epigastric pain COMPARISON: None. TECHNIQUE: Grayscale imaging was performed. FINDINGS: LIVER: Measures 13.6 cm in length. Normal echogenicity of the liver parenchyma. No mass. No intrahepatic bile duct dilatation. GALLBLADDER: There are no gallstones or wall thickening. There is minimal pericholecystic fluid. The sonographic Nicole's sign is negative. COMMON BILE DUCT: Measures 2.4 mm. No stones. No dilatation. PANCREAS: Unremarkable as visualized. No mass. No ductal dilatation. RIGHT KIDNEY: Measures 9.0 cm in length. Normal echogenicity. No calculus, mass, or hydronephrosis. AORTA: No aneurysmal dilatation. IVC: Unremarkable. OTHER FINDINGS: None . IMPRESSION: No cholelithiasis or biliary dilatation. Minimal pericholecystic fluid is nonspecific and of uncertain etiology. A preliminary report was provided by [employer] [facility].
--- NOTE | 2018-06-08 12:25 | CP.PCM.CON ---
History of Present Illness - History of Present Illness History of Present Illness: Seen and examined at bedside, chart reviewed Request for consult is for abdominal pain. HPI: This is a 22 year old female with a PMH of chronic gastritis, seen by our service back in March 2018 with similar complaints. Patient came in with worsening abdominal pain that started suddenly yesterday after the onset of her menstruation, she got nausea and vomiting and diarrhea, at times she does get this with her mensis but these symptoms do occur at other times. No hematemsis, melena or BRBPR. She is having mostly epigastric pain , patient endorese that she vomited mutiple times , about 15 times, appeared bilious, no blood. She admits to smoking "weed" about 1-2 hits, its "passed around" as per patient. Last she had was yesterday, but smokes a few times a week. She endorese that she reduced alcohol intake after last admission. No sob, CP, weight loss, MEYER, loss or appetite. On admission ct scan A7P was done, GB show small amt or pericholecystic fluid, other cutler unremarkable. Abdominal US was done and this show nonspecific pericholecystic fluid, cbd 2.4 mm. CXR was negative. Recent EGD was done 03/2018 found to have chronic gastritis and duodenitis, BX duodenum negative for Celial disease, gastric bx no hpylori or intestinal metaplasia. PMH: chronic gastritis, Marijuana use PSH: denies Allergies: NKDA MEDS: reviewed as per MAR Family HX: noncontributory at this time Social hx: drinks at times, report that "cut" down, smokes Marijuana a few times a/week, denies IV drug use, denies tobacco ROS: systems reviewed with positive findings, see HPI Past Patient History - Infectious Disease Hx of Infectious Diseases: None - Tetanus Immunizations Tetanus Immunization: Unknown - Past Social History Smoking Status: Current Some Days Smoker - CARDIAC Hx Cardiac Disorders: No - PULMONARY Hx Respiratory Disorders: No - NEUROLOGICAL Hx Neurological Disorder: No - HEENT Hx HEENT Problems: No - RENAL Hx Chronic Kidney Disease: No - ENDOCRINE/METABOLIC Hx Endocrine Disorders: No - HEMATOLOGICAL/ONCOLOGICAL Hx Blood Transfusions: No Hx Blood Transfusion Reaction: No - INTEGUMENTARY Hx Dermatological Problems: No - MUSCULOSKELETAL/RHEUMATOLOGICAL Hx Falls: No - GASTROINTESTINAL Hx Gastrointestinal Disorders: (Gstritis) - GENITOURINARY/GYNECOLOGICAL Hx Genitourinary Disorders: No - PSYCHIATRIC Hx Psychophysiologic Disorder: No Hx Substance Use: Yes - SURGICAL HISTORY Hx Surgeries: No - ANESTHESIA Hx Anesthesia: Yes Meds Allergies/Adverse Reactions: Allergies Allergy/AdvReac Type Severity Reaction Status Date / Time No Known Allergies Allergy Verified 04/12/18 02:46 - Medications Medications: Current Medications Acetaminophen (Tylenol 325mg Tab) 650 mg PO Q6H PRN PRN Reason: Pain, Mild (1-3) Sodium Chloride (Sodium Chloride 0.9%) 1,000 mls @ 100 mls/hr IV .Q10H JOSE A Last Admin: 06/08/18 03:11 Dose: 100 mls/hr Ketorolac Tromethamine (Toradol) 30 mg IVP Q8 PRN PRN Reason: Pain, moderate (4-7) Last Admin: 06/08/18 10:57 Dose: 30 mg Metoclopramide HCl (Reglan) 10 mg IVP Q6H JOSE A Stop: 06/10/18 11:16 Ondansetron HCl (Zofran Inj) 4 mg IVP Q6H PRN PRN Reason: Nausea/Vomiting Pantoprazole Sodium (Protonix Inj) 40 mg IVP Q12H JOSE A Physical Exam - Constitutional Appears: No Acute Distress - Eye Exam Eye Exam: Normal appearance. absent: Scleral icterus - ENT Exam ENT Exam: Mucous Membranes Dry (slightly) - Neck Exam Neck exam: Positive for: Normal Inspection - Respiratory Exam Respiratory Exam: Clear to Auscultation Bilateral, NORMAL BREATHING PATTERN. absent: Respiratory Distress - Cardiovascular Exam Cardiovascular Exam: +S1, +S2 - GI/Abdominal Exam GI & Abdominal Exam: Normal Bowel Sounds, Soft, Tenderness (epigastric). absent : Distended, Guarding, Organomegaly, Rebound - Extremities Exam Extremities exam: Positive for: pedal pulses present. Negative for: calf tenderness, pedal edema - Neurological Exam Neurological exam: Alert, Oriented x3 - Skin Skin Exam: Dry, Warm Results - Vital Signs Recent Vital Signs: Last Vital Signs Temp 98.6 F 06/08/18 06:00 Pulse 58 L 06/08/18 06:00 Resp 20 06/08/18 06:00 BP 111/24 L 06/08/18 06:00 Pulse Ox 98 06/08/18 06:00 - Labs Result Diagrams: 06/07/18 18:00 06/07/18 18:00 Assessment & Plan - Assessment and Plan (Free Text) Assessment: ASSESSMENT: Abdominal Pain, mainly epigastric, may be secondary to multiple episode of vomiting, abdominal US nonspecific pericholecystic fluid, no GB stones, cbd 2.4 mm Intractable N/V differential to consider is Marijuana hyperemesis h/o Chronic gastritis Hypokalemia likley secondary to vomiting/diarrhea Drug use: argenis PLAN: NPO, continue IVF start Protonix 40 mg IV Q12 start Reglan 10 mg IVP Q6H x2 day, short course on Zofran prn discuss cessation of marijuana use urine drug screen pending Thank you for this consult and for allowing us to participate in your patient care, further recommendation based upon clinical course. Seen and examined with Dr. Weldon covering Dr. Dillard.
[2018-06-08 15:06] VITALS: RESP 18
[2018-06-08] MEDS: Morphine 2 mg/ml ISec IVP PRN ×2 (15:33→22:03)
[2018-06-08 16:22] LABS: BARBITURATES, UR NEGATIVE (NEGATIVE); BENZODIAZEPINES, UR NEGATIVE (NEGATIVE); OPIATES, UR NEGATIVE (NEGATIVE); PHENCYCLIDINE, UR NEGATIVE (NEGATIVE)
[2018-06-09 06:54] LABS: BASO # 0.01 K/mm3 (0.0-2.0); BASO % 0.1 % (0.0-3.0); GRAN # 7.3 (1.4-6.5); GRAN % 73.8 % (50.0-68.0); HEMOGLOBIN 12.4 g/dL (12.0-16.0); LYMPH # 2.1 (1.2-3.4); LYMPH % 21.6 % (22.0-35.0); MEAN CORPUSCULAR HEMOGLOBIN 27.8 pg (25.0-35.0); MEAN CORPUSCULAR HGB CONC 35.6 g/dl (31.0-37.0); MEAN PLATELET VOLUME 9.4 fl (7.0-11.0); MONO # 0.4 (0.1-0.6); MONO % 4.5 % (1.0-6.0); RBC 4.46 10^6/uL (3.5-6.1); RED CELL DISTRIBUTION WIDTH 13.7 % (11.5-14.5); WHITE BLOOD COUNT 9.9 10^3/ul (4.5-11.0)
[2018-06-09 07:24] LABS: BLOOD UREA NITROGEN 11 mg/dL (7-21); CALCIUM 9.1 mg/dL (8.4-10.5); GFR AFRICAN-AMERICAN > 60; GFR NON-AFRICAN AMERICAN > 60
[2018-06-09 07:53] VITALS: TEMP 98.5
[2018-06-09] MEDS ORDERED: Pantoprazole 40 mg EC Tab PO SCH (11:02)
[2018-06-09] MEDS ORDERED: Potassium Chloride 20 mEq ER Tab PO STA ×2 (11:51→14:37)
[2018-06-09 13:08] VITALS: BP 130/99; PULSE 73; O2SAT 99
--- NOTE | 2018-06-09 15:59 | PN ---
Copied To: Cj Weldon MD Attending MD: Cj Weldon MD DATE: 06/09/2018 SUBJECTIVE: The patient is curled up in bed on the sheets. She feels better. She denies any further nausea, vomiting, dry heaves or abdominal pain. PHYSICAL EXAMINATION: VITAL SIGNS: Reveal temperature of 98.5, blood pressure 134/90, heart rate of 50. HEENT: Reveals sclerae to be white. Conjunctivae pink. NECK: Supple. CHEST: Lungs are clear. HEART: Reveals regular rate and rhythm. ABDOMEN: Soft, nontender. EXTREMITIES: Show no edema. LABORATORY DATA: Reveal hemoglobin 12.4, white blood cell count 9.9. Chemistries reveal potassium of 3.4. Tox screen is positive for cannabinoids. IMPRESSION: A 22-year-old female with recurrent nausea, vomiting, abdominal pain. This almost has the pattern of a cyclical vomiting syndrome. I suspect that her symptoms are predominately secondary to marijuana use. She feels better this morning. RECOMMENDATIONS: We will advance to a low-fat, low fiber diet. If tolerated, the patient can be discharged home. The patient has been instructed to abstain from any further marijuana use. Cj Weldon MD
--- NOTE | 2018-06-09 16:27 | HP ---
Copied To: Taniya Woody MD Attending MD: Taniya Woody MD DATE OF EXAM: 06/08/2018 HISTORY OF PRESENT ILLNESS: This 22-year-old female was examined at her bedside in the presence of her sister and nurse, Sharyn Jonesdeb Husain, registered nurse. This patient was admitted through the emergency room with complaints of nausea, vomiting and intractable vomiting with clinical dehydration and inability to tolerate fluids. In the emergency room, she was treated with parenteral Zofran, IV fluids and is now receiving IV Reglan for gastroparesis. In the emergency room, the patient underwent chest x-ray, abdominopelvic CT and gallbladder ultrasound. Unremarkable for evidence of gallstones or acute cholecystitis. There was no evidence of acute appendicitis. Chest x-ray was reviewed and shows the lungs well inflated and clear and the patient at present remains n.p.o., receiving IV fluids, IV Reglan, IV Protonix and Zofran p.r.n. nausea and vomiting. Her pain was managed with parenteral Toradol and she continues on IV sodium chloride. PAST MEDICAL HISTORY: Significant for previous admission for gastroenteritis with full endoscopic study showing no evidence of gastric or duodenal ulcers, at which time the patient was discharged to home on H2 blockers. ALLERGIES: SHE HAS NO KNOWN ALLERGIES TO MEDICATION. SOCIAL HISTORY: Is a social drinker, smoker and marijuana misuser. FAMILY HISTORY: Noncontributory. REVIEW OF SYSTEMS: Constitutional: Denied fever, chills. Head: No headache or seizure. Eye: No change in visual acuity. Ear: No hearing loss. Throat: No swallowing difficulty. Neck: No stiffness. Cardiac: No chest pain. Pulmonary: No hemoptysis. GI: As per HPI. : No dysuria. Skin: No rash. Vascular: No claudication. Psychological: History of illicit drug misuse. Neurological: No knowledge of stroke. PHYSICAL EXAMINATION: GENERAL: Physical exam showed a patient oriented x3. VITAL SIGNS: Temperature of 98.6, respirations 20, pulse 58, blood pressure 111/24. Pulse ox 98% on room air. HEENT: Head normocephalic, atraumatic. Eyes: No icterus. Ears: Clear. Throat: Noninjected. NECK: Supple. HEART: S1, S2. LUNGS: Clear. ABDOMEN: Soft. No rebound. No guarding with mild diffuse tenderness on palpation. No CVA tenderness. EXTREMITIES: No edema. SKIN: No rash. VASCULAR: Legs warm to touch. PSYCHOLOGICAL: Alert. NEURO: Deconditioned, but intact. LABORATORY DATA: White count 8000, hemoglobin 12.9, hematocrit 35.4, platelets 249,000. Sodium 143, K 3.5, chloride 107, bicarb 24, BUN 7, creatinine 0.7, random blood sugar 125, bilirubin 1.1, AST 24, ALT 22, alk phos 87, lipase 53. Urinalysis showed few bacteria. Drug screen positive for cannabinoids. Alcohol level less than 10. IMPRESSION: A 22-year-old female with history of marijuana misuse and abuse, now admitted with acute gastroenteritis consistent with marijuana hyperemesis and history of chronic gastritis with hypokalemia secondary to vomiting. PLAN: The plan is to maintain this patient n.p.o. while continuing IV fluids, starting Protonix 40 mg IV every 12 and Reglan 10 mg IV every 6 hours for a 2-day short course while continuing Zofran p.r.n. for breakthrough vomiting. The patient was counseled regarding the cessation of marijuana misuse and a GI consultation with Dr. Dillard has been requested. Based on her clinical progress, additional diagnostic testing and medication will be entertained. She will have her potassium level repeated in a.m. and greater than 75 minutes was spent in the care and management, review of labs, orders, x-rays and discussion of this patient with her sister at the bedside and her nurse. All questions were answered. Taniya Woody MD [facility]
--- NOTE | 2018-06-11 03:01 | DS ---
Copied To: Taniya Woody MD Attending MD: Taniya Woody MD DATE OF DISCHARGE AND EVALUATION: 06/09/2018. FINAL DIAGNOSES: Gastroenteritis, marijuana hyperemesis, peptic ulcer disease with gastroesophageal reflux disease, history of marijuana misuse and abuse. DISPOSITION: Home. DONOR SERVICES MANAGER: Dr. Weldon from Gastroenterology. DISCHARGE MEDICATIONS: Pepcid 20 mg p.o. every 12 hours p.r.n. dyspepsia. The patient was admonished against the use of marijuana and illicit drugs in the presence of nurse Daya Najera, registered nurse. SUMMARY: This 22-year-old female was admitted with intractable vomiting, dehydration and electrolyte imbalance including hypokalemia with a drug screen positive for cannabinoids. The patient was seen in consultation by Gastroenterology who recommended IV fluids, IV Reglan, IV Protonix and advancement of diet to clear liquid, then full. The patient was seen earlier on 06/09/[address] Weldon from Gastroenterology who cleared the patient for discharge to home. At the time of my interview in the presence of nurse Najera, temperature was 98.5, respirations 18, pulse 73 and blood pressure 134/90. Pulse ox 100% room air. LABORATORY DATA: Labs showed white count 9900, hemoglobin 12.4, hematocrit 34.8, platelets 224,000. Sodium 138, K 3.4 for which the patient received a stat dose of K-Dur 20 mEq p.o., chloride 103, bicarb 22, BUN 11, creatinine 0.8 and random blood sugar 91 and calcium 9.1. The patient was cleared for discharge to home. She was advised to follow up with her PMD within 48 hours and desist from alcohol misuse and illicit drug misuse and abuse. Greater than 35 minutes was spent in the care management, review of labs, orders, x-rays and outlining of instructions for this patient's discharge management with herself and nurse Najera. All questions were answered. Taniya Woody MD [facility]
--- NOTE | 2018-06-11 08:46 | CON ---
Copied To: Cj Weldon MD Attending MD: Cj Weldon MD ADDENDUM DATE: 06/08/2018 This consult is for Dr. Dillard, Dr. Weldon covering. HISTORY OF PRESENT ILLNESS: I personally examined this patient on 06/08/2018. The patient is admitted to the hospital with 1 day of severe nausea, vomiting, retching, some mild abdominal pain which she states is due to her dry heaves. The patient was hospitalized in early March with similar complaints. An endoscopy at that time revealed chronic gastritis. Upon further querying of the patient, the patient admits to smoking marijuana every day. She denies other drug use. I suspect that her nausea and vomiting are secondary to marijuana use. RECOMMENDATIONS: I agree with Monica Stephens' assessment and recommendations. We will start the patient on a PPI and IV Reglan. Cj Weldon MD : 06/09/2018 12:16:02
== END 2018-06-09 16:57 | disposition home or self-care (01) ==
LOC: ED 17:38 → ERH 06-08 01:23 → 5RSO 06-08 02:38 → OBSVTOIN 06-09 11:53 → INTOOBSV 06-09 11:53
PROVIDERS: ADMIT Internal Medicine; ATTEND Internal Medicine
DX: K52.9 Noninfective gastroenteritis and colitis, unspecified (principal); G43.A1 Cyclical vomiting, in migraine, intractable; F12.90 Cannabis use, unspecified, uncomplicated; K27.9 Peptic ulcer, site unspecified, unspecified as acute or chronic, without hemorrhage or perforation; K21.9 Gastro-esophageal reflux disease without esophagitis; K29.50 Unspecified chronic gastritis without bleeding; E87.6 Hypokalemia; E86.0 Dehydration; K31.84 Gastroparesis; F17.200 Nicotine dependence, unspecified, uncomplicated
CPT/HCPCS: 36415; 71045; 74177; 76705; 80048; 80053; 80320; 80324; 80345; 80346; 80349; 80353; 80358; 80361; 81001; 83690; 83992; 85025; 96361; 96374; 96375; 96376; 99284; C9113; G0378; J1885; J2060; J2270; J2405; J2765; J7030; Q9967